=== PATIENT | female | born 1945 | race Caucasian/White ===

== ENCOUNTER 2016-12-10 23:43 | Observation (INO) ==
--- NOTE | 2016-12-10 23:51 | Emergency Department Note ---
Disposition Clinical Impression: Lower extremity edema Chest pain Qualifiers: Chest pain type: unspecified Qualified Code(s): R07.9 - Chest pain, unspecified Disposition: Admitted As Inpatient Condition: Good Referrals: Idania Sun DO [Primary Care Provider] - Forms: ED Satisfaction Letter Time of Disposition: 03:23 Chest Pain HPI - General Chief Complaint: ED Chest Pain Stated Complaint: chest pain Time Seen by Provider: 12/10/16 23:50 Source: patient, EMS Mode of arrival: EMS Limitations: no limitations Vital Signs Reviewed: Yes Nursing Notes Reviewed: Yes - History of Present Illness HPI Narrative: Patient is a 71-year-old female with past medical history of stent placement 3 , COPD, smoking history. She presents today due to chest pain. She states that she had chest pain just prior to arrival while sitting at her kitchen table she states that it was left-sided, radiated to her back and left jaw, associated shortness of breath. No associated sweating, nausea, vomiting. She took 3 nitroglycerin tablets at home and states that the pain completely relieved after this. Denies any other current symptoms and rates her current pain a 0 out of 10. Denies any fevers, nausea, vomiting, abdominal pain, changes in bowel or bladder habits. - Related Data Home Medications Medication Instructions Recorded Confirmed Atorvastatin [Lipitor] 40 mg PO HS 11/12/16 11/13/16 Celecoxib [Celebrex] 200 mg PO DAILY 11/12/16 11/13/16 Clopidogrel [Plavix] 75 mg PO DAILY 11/12/16 11/13/16 HYDROcodone/Acet 5/325 mg [[place] 1 tab PO Q6HR PRN 11/12/16 11/13/16 5-325 mg] Isosorbide MONOnitrate (24 HR) 30 mg PO DAILY 11/12/16 11/13/16 [Imdur] Levothyroxine [Synthroid] 75 mcg PO DAILY 11/12/16 11/13/16 Metoprolol [Lopressor] 25 mg PO BID 11/12/16 11/13/16 Omeprazole [PriLOSEC] 40 mg PO BID 11/12/16 11/13/16 Potassium Chloride [Klor-Con 16 meq PO BID 11/12/16 11/13/16 Sprinkle] Aspirin 81 mg PO DAILY 11/13/16 11/13/16 buPROPion HCl [Zyban] 150 mg BID 11/13/16 11/13/16 Previous Rx's Medication Instructions Recorded Gabapentin [Neurontin] 300 mg PO TID capsule 11/15/16 GuaiFENesin ER [Mucinex] 600 mg PO BID tbbp.12hr 11/15/16 Levofloxacin [Levaquin] 750 mg PO DAILY #3 tablet 11/15/16 Nicotine Patch [Nicoderm] 14 mg TD DAILY patch.td24 11/15/16 predniSONE [Prednisone] 10 mg PO DAILY #10 tab.ds.pk 11/15/16 Allergies Allergy/AdvReac Type Severity Reaction Status Date / Time acetaminophen [From Percocet] Allergy Nausea Verified 12/10/16 23:48 Oxycodone [From Percocet] Allergy Nausea Verified 12/10/16 23:48 rofecoxib [From Vioxx] Allergy Swelling Verified 12/10/16 23:48 of Lip/Tongue/Throat DYE(mylogram) Allergy Vomiting Uncoded 12/10/16 23:48 All systems ED: reviewed and negative except as stated. 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 history - Social History Smoking Status: Current every day smoker Alcohol use: Reports: none Drug use: Reports: none Physical Exam - General Limitations: no limitations General appearance: alert, in no apparent distress - Head Head exam: atraumatic, normocephalic, normal inspection - Eye Eye exam: Present: normal appearance, PERRL, EOMI - ENT ENT exam: normal exam, normal oropharynx, mucous membranes moist - Neck Neck exam: Present: normal inspection, full ROM, trachea midline - Chest Chest inspection: Present: normal inspection, symmetric chest wall rise - Respiratory Respiratory exam: Present: wheezes (mild wheezes in bilateral LL) - Cardiovascular Cardiovascular exam: Present: regular rate, normal rhythm, normal heart sounds - Abdominal Exam Abdominal exam: Present: soft, Non-Tender. Absent: tenderness, distention, guarding, rebound, rigidity - Extremities Exam Extremities exam: Present: normal inspection, full ROM, pedal edema (swelling of LLE and pain with palpation of left calf and foot) - Neurological Exam Neurological exam: Present: alert, oriented X3 - Psychiatric Psychiatric exam: Present: normal affect, normal mood - Skin Skin exam: Present: warm, dry, intact, normal color Course Course Narrative: Patient mildly hypertensive with systolic in the 130s on presentation. Otherwise, the rest of the vitals within normal limits. Patient is in no acute distress. Mild wheezes in lower lobes bilaterally. Swelling of LLE and pain with palpation of left calf and foot. EKG was obtained which showed sinus rhythm with no acute ST changes. We will obtain chest x-ray, troponin, basic blood work, a d-dimer to assess for clot. We will give patient aspirin 325 mg as she did not take appropriate dosing prior to arrival. Currently no chest pain. 03:20 d-dimer was ordered due to left LE swelling. This came back positive. Lower extremity Dopplers were obtained and were negative for DVT. CTA of the chest was negative for any signs of PE. There was signs of emphysematous changes. Patient continues to have no current chest pain. We will admit the patient for chest pain rule out with risk factors and pain going away with nitroglycerin. Chest X-Ray 12/10/16 23:51 IMPRESSION: 1. No acute cardiopulmonary abnormality. 2. Stable findings of emphysema and chronic obstructive physiology. D/ / Arias Mcrae MD / Arias Mcrae MD Interpreting Provider: Arias Mcrae MD Chest CTA 12/11/16 01:00 IMPRESSION: No evidence of pulmonary embolism or acute pulmonary abnormality. Moderate emphysematous changes in the lungs. D/ / Chantal Pena MD / Chantal Pena MD Interpreting Provider: Chantal Pena MD Vital Signs Temperature 97.9 F 12/10/16 23:48 Pulse Rate 75 12/10/16 23:48 Respiratory Rate 16 12/10/16 23:48 Blood Pressure 130/71 12/10/16 23:48 O2 Sat by Pulse Oximetry 98 12/10/16 23:48 Temperature 97.9 F 12/10/16 23:48 Pulse Rate 75 12/10/16 23:48 Respiratory Rate 16 12/10/16 23:48 Blood Pressure 130/71 12/10/16 23:48 O2 Sat by Pulse Oximetry 98 12/10/16 23:48 Oxygen Delivery Oxygen Delivery Room Air Chest Pain - MDM Narrative Medical decision making narrative: d-dimer was ordered due to left LE swelling. This came back positive. Lower extremity Dopplers were obtained and were negative for DVT. CTA of the chest was negative for any signs of PE. There was signs of emphysematous changes. Patient continues to have no current chest pain. We will admit the patient for chest pain rule out with risk factors and pain going away with nitroglycerin. - Medical Records Medical records reviewed: Yes I reviewed the patient's medical records. - Lab Data Lab results reviewed: Yes I reviewed the patient's lab results. Result diagrams: 12/11/16 00:13 12/11/16 00:13 Lab Results 12/11/16 12/11/16 12/11/16 Range/Units 00:13 00:13 00:13 WBC 5.6 (4.3-11.1) K/mcL RBC 3.66 L (3.82-4.97) M/mcL Hgb 12.0 (11.5-15.4) g/dL Hct 36.2 (35.3-44.9) % MCV 98.9 (83.0-100.0) fL MCH 32.8 (28.0-33.3) pg MCHC 33.1 (31.6-35.5) g/dL RDW 13.2 (11.5-14.5) % Plt Count 276 (140-400) K/mcL MPV 9.2 L (9.4-12.4) fL Immature Gran % 0.7 (0-4) % Seg Neutrophils % 43.9 % Lymphocytes % 36.2 % Monocytes % 12.8 % Eosinophils % 5.7 % Basophils % 0.7 % Neutrophils # 2.5 (1.6-8.9) K/mcL Lymphocytes # 2.0 (0.6-4.6) K/mcL Monocytes # 0.7 (0.0-1.3) K/mcL Eosinophils # 0.3 (0.0-0.6) K/mcL Basophils # 0.0 (0.0-0.2) K/mcL PT 10.0 (9.4-12.1) Seconds INR 0.9 APTT 29.1 (26.0-36.0) Seconds D-Dimer (0-500) ng/mLFEU Sodium 138 (136-145) mEq/L Potassium 4.8 H (3.5-4.5) mEq/L Chloride 106 (98-109) mEq/L Carbon Dioxide 26 (19-29) mEq/L BUN 27 H (7-20) mg/dL Creatinine 1.23 H (0.57-1.11) mg/dL Est GFR ( Amer) 52 L (> 60) Est GFR (Non-Af Amer) 43 L (> 60) BUN/Creatinine Ratio 22 (6-26) Glucose 81 (70-99) mg/dL Calculated Osmolality 290 (280-300) Calcium 9.4 (8.6-10.8) mg/dL Troponin I (0-0.03) ng/mL 12/11/16 12/11/16 Range/Units 00:13 00:13 WBC (4.3-11.1) K/mcL RBC (3.82-4.97) M/mcL Hgb (11.5-15.4) g/dL Hct (35.3-44.9) % MCV (83.0-100.0) fL MCH (28.0-33.3) pg MCHC (31.6-35.5) g/dL RDW (11.5-14.5) % Plt Count (140-400) K/mcL MPV (9.4-12.4) fL Immature Gran % (0-4) % Seg Neutrophils % % Lymphocytes % % Monocytes % % Eosinophils % % Basophils % % Neutrophils # (1.6-8.9) K/mcL Lymphocytes # (0.6-4.6) K/mcL Monocytes # (0.0-1.3) K/mcL Eosinophils # (0.0-0.6) K/mcL Basophils # (0.0-0.2) K/mcL PT (9.4-12.1) Seconds INR APTT (26.0-36.0) Seconds D-Dimer 2211 H (0-500) ng/mLFEU Sodium (136-145) mEq/L Potassium (3.5-4.5) mEq/L Chloride (98-109) mEq/L Carbon Dioxide (19-29) mEq/L BUN (7-20) mg/dL Creatinine (0.57-1.11) mg/dL Est GFR ( Amer) (> 60) Est GFR (Non-Af Amer) (> 60) BUN/Creatinine Ratio (6-26) Glucose (70-99) mg/dL Calculated Osmolality (280-300) Calcium (8.6-10.8) mg/dL Troponin I 0.00 (0-0.03) ng/mL - Radiology Data Radiology results reviewed: Yes I reviewed the patient's radiology results. Chest X-Ray 12/10/16 23:51 IMPRESSION: 1. No acute cardiopulmonary abnormality. 2. Stable findings of emphysema and chronic obstructive physiology. D/ / Arias Mcrae MD / Arias Mcrae MD Interpreting Provider: Arias Mcrae MD Chest CTA 12/11/16 01:00 IMPRESSION: No evidence of pulmonary embolism or acute pulmonary abnormality. Moderate emphysematous changes in the lungs. D/ / Chantal Pena MD / Chantal Pena MD Interpreting Provider: Chantal Pena MD - EKG Data EKG attestation: Yes I reviewed and interpreted this EKG. EKG results narrative: 12/10/2016 at 23:49. Normal sinus rhythm. Rate 77. TN 201. QRS 86. QTC 411. Normal axis. No acute ST elevation or depression. No changes from previous EKG on 11/12/2016. S.B.A.R. - S.B.A.R. Situation: Demographics, MOA Background: Presenting Complaint, Relevant PMH, Meds, & Allergies Assessment: Vital Signs, Course and respsone to treatment, Exam Concerns, Patient/Family Expectation, Pertinant Lab Results Recommendation: Barrier(s) to disposition, Recommendation based on pending studies, treatments, or consults Chandu Report Given to: Dr. Escobar Schofield Repor Time: 03:23
[2016-12-10] MEDS ORDERED: Aspirin 325 MG TABLET PO ONE (23:53)
--- NOTE | 2016-12-11 00:05 | Emergency Department Note ---
START Narrative - START START: I examined this patient and my medical decision-making was reviewed with the Resident Physician. I agree with the documented findings, disposition and treatment plan as described except to the extent set forth below. 71 year old female with HX of cardiac stents presnts with midsternal chest pain that was orginally desribed as 10/10 but after taking nitro it was now 2/10. We will do chest rule out ACS workup in addition to a PE/DVt rue out with D-dimer due to some increased swelling in her legs . We will admit to medicine if PE/ Dvt workup is negative fr chest pain rule out ACS.
[2016-12-11 00:20] LABS: Basophils % 0.7 %; Eosinophils # 0.3 K/mcL (0.0-0.6); Eosinophils % 5.7 %; Hematocrit 36.2 % (35.3-44.9); Immature Granulocytes % 0.7 % (0-4); Lymphocytes % 36.2 %; Mean Corpuscular HGB Conc 33.1 g/dL (31.6-35.5); Mean Corpuscular Hemoglobin 32.8 pg (28.0-33.3); Mean Corpuscular Volume 98.9 fL (83.0-100.0); Mean Platelet Volume 9.2 fL (9.4-12.4); Monocytes # 0.7 K/mcL (0.0-1.3); Monocytes % 12.8 %; Neutrophils # 2.5 K/mcL (1.6-8.9); Platelet Count 276 K/mcL (140-400); Red Blood Count 3.66 M/mcL (3.82-4.97); Red Cell Distribution Width 13.2 % (11.5-14.5); Segmented Neutrophils % 43.9 %
[2016-12-11 00:27] LABS: INR 0.9
[2016-12-11 00:29] LABS: Activated Partial Thrombo Time 29.1 Seconds (26.0-36.0)
[2016-12-11 00:32] LABS: Calcium 9.4 mg/dL (8.6-10.8); Potassium 4.8 mEq/L (3.5-4.5)
[2016-12-11] MEDS ORDERED: *HR* Promethazine 25 MG/ML VIAL IVP ONE (01:21)
[2016-12-11] MEDS ORDERED: *HR* HYDROcodone/Acet 5/325 mg TABLET PO PRN (07:50)
[2016-12-11] MEDS ORDERED: Naloxone 0.4 MG/ML INJ IVP PRN (08:11)
[2016-12-11] MEDS ORDERED: Acetaminophen 325 MG TABLET PO PRN (08:11)
[2016-12-11] MEDS ORDERED: *HR* Promethazine 25 MG/ML VIAL IVP PRN (08:11)
[2016-12-11] MEDS ORDERED: *HR* Morphine 2 MG/ML SYRINGE IVP PRN (08:11)
[2016-12-11] MEDS ORDERED: 0.9 % Sodium Chloride 1,000 ML IVC SCH (08:15)
[2016-12-11] MEDS ORDERED: Ipratropium/Albuterol Neb 3 ML IH PRN (08:20)
--- NOTE | 2016-12-11 08:21 | Internal Med History&Physical ---
Date of Encounter: 12/11/16 Time of Encounter: 08:14 Assessment and Plan (1) Chest pain Current visit: Yes Status: Acute Schedule stress test Telemetry, troponins, continue aspirin, Plavix, isosorbide Schedule stress test and hold metoprolol for test, continue statin Order lipid panel Omeprazole for GI prophylaxis and Lovenox for DVT prophylaxis. The patient will be admitted for observation. Full code. Time spent on this admission 40 min Qualifiers: Chest pain type: unspecified Qualified Code(s): R07.9 - Chest pain, unspecified (2) CAD (coronary artery disease) Current visit: No Status: Chronic Qualifiers: Coronary Disease-Associated Artery/Lesion type: [place] artery [place] vs. transplanted heart: [place] heart Associated angina: angina presence unspecified Qualified Code(s): I25.10 - Atherosclerotic heart disease of [place] coronary artery without angina pectoris (3) Hypertension Current visit: No Status: Chronic Stable Qualifiers: Hypertension type: essential hypertension Qualified Code(s): I10 - Essential (primary) hypertension (4) Hypothyroid Current visit: No Status: Chronic Continue Synthroid Qualifiers: Hypothyroidism type: unspecified Qualified Code(s): E03.9 - Hypothyroidism , unspecified (5) Tobacco use Current visit: No Status: Acute Smoking cessation counseling. Nicotine patch (6) Elevated d-dimer Current visit: Yes Status: Acute CT scan did not show evidence of pulmonary emboli, venous duplex did not show evidence of DVT (7) COPD (chronic obstructive pulmonary disease) Current visit: Yes Status: Acute No exacerbation, continued on nebs as needed Qualifiers: COPD type: emphysema Emphysema type: unspecified Qualified Code(s): J43.9 - Emphysema, unspecified Internal Medicine - H&P: HPI Chief complaint: Chest pain Admitted From: Emergency Dept History of present illness: Ms. Cat is a 71 year old female with a past medical history of CAD status post stents, COPD not oxygen dependent, tobacco use, hypertension and hyperlipidemia who came to the emergency room complaining of chest pain that started last night around 10 PM and lasted for about 30 minutes. The patient is very somnolent and is very poor historian but she was able to answer questions mentioning that the chest pain was a mainly midsternal, 10 out of 10 in intensity radiating to her back and jaw, pressure-like. The d-dimer was performed and was [address] scan of the chest was on showing no pulmonary emboli and showing just moderate emphysematous changes. Her creatinine is 1.23 at baseline. The duplex of both lower extremities was performed and it was negative for DVT. EKG shows minimal ST elevations on the lateral leads less than 2 mm. The patient has not been complaining of any chest pain since last night, denies any other symptom at the moment there is very tired and somnolent. Received aspirin at emergency room Past Med Surg Social Fam HX - Past Medical History Medical history: arthritis, COPD (Not oxygen dependent), coronary artery disease (Status post stents), GERD, hyperlipidemia, hypertension, myocardial infarction, thyroid disease (Hypothyroidism), other (Tobacco use, depression, osteoarthritis, GERD, UTIs, gastric ulcers) Psychiatric history: no psych history - Past Surgical History Surgical History: other (Neck surgeries, back surgeries) - Social History Smoking Status: Current every day smoker Packs per day: 1 Smokeless Tobacco Status: No Alcohol use: none Drug use: none - Family History Father Living Status: Mother Living Status: Still Living Hx Family Cardiac Disorders: Yes (Heart disease hypertension) Brother Adopted: No Family Member Ethnicity: Non- Living Status: Hx Family Cardiac Disorders: Yes Hx Family Respiratory Disorders: Yes Hx Family Cancer: Yes (Mother malignant melanoma) Hx Family GI Disorders: No Hx Family Endocrine Disorder: Yes (Thyroid disorder) Hx Family Neuromuscular Disorders: No Hx Family Neurologic Disorders: No Hx Family HEENT Disorders: No Hx Family Autoimmune Disorders: No - Additional Family History Additional family history: Father committed suicide, mother with hypertension Internal Medicine - H&P: Meds Atorvastatin [Lipitor] 40 mg PO HS 11/12/16 [History] Celecoxib [Celebrex] 200 mg PO DAILY 11/12/16 [History] Clopidogrel [Plavix] 75 mg PO DAILY 11/12/16 [History] HYDROcodone/Acet 5/325 mg [[place] 5-325 mg] 1 tab PO Q6HR PRN 11/12/16 [History] Isosorbide MONOnitrate (24 HR) [Imdur] 30 mg PO DAILY 11/12/16 [History] Levothyroxine [Synthroid] 75 mcg PO DAILY 11/12/16 [History] Metoprolol [Lopressor] 25 mg PO BID 11/12/16 [History] Omeprazole [PriLOSEC] 40 mg PO BID 11/12/16 [History] Potassium Chloride [Klor-Con Sprinkle] 16 meq PO BID 11/12/16 [History] Aspirin 81 mg PO DAILY 11/13/16 [History] buPROPion HCl [Zyban] 150 mg BID 11/13/16 [History] Gabapentin [Neurontin] 300 mg PO TID capsule 11/15/16 [Rx] GuaiFENesin ER [Mucinex] 600 mg PO BID tbbp.12hr 11/15/16 [Rx] Levofloxacin [Levaquin] 750 mg PO DAILY #3 tablet 11/15/16 [Rx] Nicotine Patch [Nicoderm] 14 mg TD DAILY patch.td24 11/15/16 [Rx] predniSONE [Prednisone] 10 mg PO DAILY #10 tab.ds.pk 11/15/16 [Rx] 3 Allergy/AdvReac Type Severity Reaction Status Date / Time acetaminophen [From Percocet] Allergy Nausea Verified 12/10/16 23:48 Oxycodone [From Percocet] Allergy Nausea Verified 12/10/16 23:48 rofecoxib [From Vioxx] Allergy Swelling Verified 12/10/16 23:48 of Lip/Tongue/Throat DYE(mylogram) Allergy Vomiting Uncoded 12/10/16 23:48 All Systems PM: A 10-system review of systems was performed and is negative for pertinent findings except as documented above in the HPI. Review of systems: Denies any shortness of breath, no abdominal pain, no dysuria. Other systems out all the 10 reviewed were negative - Constitutional Vitals: Temp Pulse Resp BP Pulse Ox 97.8 F 80 18 105/50 97 12/11/16 08:05 12/11/16 08:05 12/11/16 08:05 12/11/16 08:05 12/11/16 08:05 General appearance: Present: A&O X 3 (Forgetful but oriented, very somnolent) - Head Head exam: Present: atraumatic, normocephalic - Eye Eye exam: Present: PERRL, conjuntiva pink, sclera anicteric Pupils: Present: PERRL - Neck Neck exam general surgery: Present: supple, trachea midline. Absent: lymphadenopathy - Respiratory Respiratory exam: Present: decreased breath sounds, CTAB. Absent: accessory muscle use, rales, rhonchi, wheezes - Cardiovascular Cardiovascular exam: Present: RRR, +S1, +S2. Absent: diastolic murmur, gallop, rubs, systolic murmur - GI/Abdominal GI/Abdominal exam: Present: normal bowel sounds, soft, no peritoneal signs. Absent: distended, tenderness - Extremities Exam Extremities exam: Present: warm, radial pulses palpable and symmetrical. Absent : calf tenderness, cyanotic, pedal edema - Neurological Exam Neurological exam: Present: CN II-XII intact, oriented X3, no focal deficits. Absent: pronater drift, facial droop, speech deficit - Skin Skin exam: Present: dry, intact Internal Med - H&P Results - Labs CBC & Chem 7: 12/11/16 00:13 12/11/16 00:13
[2016-12-11] MEDS ORDERED: *HR* Enoxaparin 40 MG/0.4 ML SYRINGE SQ SCH (08:30)
[2016-12-11] MEDS ORDERED: Aspirin 81 MG TAB.CHEW PO SCH (09:00)
[2016-12-11] MEDS ORDERED: Nicotine 14 MG PATCH.TD24 TD SCH (09:00)
[2016-12-11] MEDS ORDERED: Nicotine 21 MG PATCH.TD24 TD SCH (09:00)
[2016-12-11] MEDS ORDERED: BuPROPion SR (12 HR) 150 MG TABLET PO SCH (09:00)
[2016-12-11] MEDS ORDERED: Isosorbide MONOnitrate (24 HR) 30 MG TAB.ER.24H PO SCH (09:00)
[2016-12-11 09:38] LABS: Chol/HDL Ratio 2.2 (0-4.9)
[2016-12-11] MEDS ORDERED: Regadenoson 0.4 MG/5 ML SYRINGE IVP ONE (11:19)
[2016-12-11] MEDS: Gabapentin 300 MG CAPSULE PO SCH ×2 (13:37→13:50)
[2016-12-11 13:48] VITALS: BP 110/66
--- NOTE | 2016-12-11 14:46 | Discharge Summary ---
Date of Encounter: 12/11/16 Time of Encounter: 14:42 - Discharge Diagnosis (1) Chest pain Priority: Primary Status: Acute Qualifiers: Chest pain type: unspecified Qualified Code(s): R07.9 - Chest pain, unspecified (2) CAD (coronary artery disease) Priority: Secondary Status: Chronic Qualifiers: Coronary Disease-Associated Artery/Lesion type: [place] artery [place] vs. transplanted heart: [place] heart Associated angina: angina presence unspecified Qualified Code(s): I25.10 - Atherosclerotic heart disease of [place] coronary artery without angina pectoris (3) Hypertension Priority: Secondary Status: Chronic Qualifiers: Hypertension type: essential hypertension Qualified Code(s): I10 - Essential (primary) hypertension (4) Hypothyroid Priority: Secondary Status: Chronic Qualifiers: Hypothyroidism type: unspecified Qualified Code(s): E03.9 - Hypothyroidism , unspecified (5) Tobacco use Priority: Secondary Status: Acute (6) Elevated d-dimer Priority: Secondary Status: Acute (7) COPD (chronic obstructive pulmonary disease) Priority: Secondary Status: Acute Qualifiers: COPD type: emphysema Emphysema type: unspecified Qualified Code(s): J43.9 - Emphysema, unspecified - Discharge Medications Home Medications: Atorvastatin [Lipitor] 40 mg PO HS 11/12/16 [History] Celecoxib [Celebrex] 200 mg PO DAILY 11/12/16 [History] Clopidogrel [Plavix] 75 mg PO DAILY 11/12/16 [History] HYDROcodone/Acet 5/325 mg [[place] 5-325 mg] 1 tab PO Q6HR PRN 11/12/16 [History] Isosorbide MONOnitrate (24 HR) [Imdur] 30 mg PO DAILY 11/12/16 [History] Levothyroxine [Synthroid] 75 mcg PO DAILY 11/12/16 [History] Metoprolol [Lopressor] 25 mg PO BID 11/12/16 [History] Omeprazole [PriLOSEC] 40 mg PO BID 11/12/16 [History] Potassium Chloride [Klor-Con Sprinkle] 16 meq PO BID 11/12/16 [History] Aspirin 81 mg PO DAILY 11/13/16 [History] buPROPion HCl [Zyban] 150 mg BID 11/13/16 [History] Gabapentin [Neurontin] 300 mg PO TID capsule 11/15/16 [Rx] GuaiFENesin ER [Mucinex] 600 mg PO BID tbbp.12hr 11/15/16 [Rx] Nicotine Patch [Nicoderm] 14 mg TD DAILY patch.td24 11/15/16 [Rx] predniSONE [Prednisone] 10 mg PO DAILY #10 tab.ds.pk 11/15/16 [Rx] Allergies/Adverse Reactions: 3 Allergy/AdvReac Type Severity Reaction Status Date / Time acetaminophen [From Percocet] Allergy Nausea Verified 12/10/16 23:48 Oxycodone [From Percocet] Allergy Nausea Verified 12/10/16 23:48 rofecoxib [From Vioxx] Allergy Swelling Verified 12/10/16 23:48 of Lip/Tongue/Throat DYE(mylogram) Allergy Vomiting Uncoded 12/10/16 23:48 Procedures/tests Complete & Pending: Procedures Performed prior 72 hours Category Date Time Status NM lili perf SPECT multi [NM] Routine Exams 12/11/16 07:53 Taken SP pharm nuclear stress Routine Y 12/11/16 07:52 Completed Date of admission: 12/11/16 03:23 Primary care physician: Idania Sun DO - Patient Status Disposition: Home, Self-Care Condition: Good - Discharge Instructions Follow Up With: Idania Sun DO [Primary Care Provider] - Additional Instructions: Follow-up with primary care physician in one week or as needed, continue aspirin , Plavix, metoprolol, Lipitor. Quit Smoking - Diet and Activity Activity: increase activity as tolerated Diet: low fat, low cholesterol Hospital course: Ms. Cat is a 71 year old female with a past medical history of CAD status post stents, COPD not oxygen dependent, tobacco use, hypertension and hyperlipidemia , GERD, hypothyroidism, depression, osteoarthritis, UTIs, gastric ulcers, back and neck surgeries who came to the emergency room complaining of chest pain that started last night around 10 PM and lasted for about 30 minutes. The patient is very somnolent but she was able to answer questions mentioning that the chest pain was a mainly midsternal, 10 out of 10 in intensity radiating to her back and jaw, pressure-like. The d-dimer was performed and was [address] scan of the chest was performed showing no pulmonary emboli and showing just moderate emphysematous changes. Her creatinine is 1.23 at baseline. The duplex of both lower extremities was performed and it was negative for DVT. EKG shows minimal ST elevations on the lateral leads less than 2 mm. The patient has not been complaining of any chest pain since last night, Received aspirin at emergency room Stress test showed no evidence of ischemia or infarcts. She denies any chest been at the moment and is stable to be discharged Time spent discussing smoking cessation with patient: 3 to 10 minutes - Time Spent with Patient Total time spent providing and/or coordinating discharge services: Greater than 30 minutes (40 min) - Constitutional Vitals: Temp Pulse Resp BP Pulse Ox 98.0 F 86 16 110/66 97 12/11/16 13:47 12/11/16 13:47 12/11/16 13:47 12/11/16 13:47 12/11/16 08:05 General appearance: Present: A&O X 3 (Forgetful but oriented, very somnolent) - Head Head exam: Present: atraumatic, normocephalic - Eye Eye exam: Present: PERRL, conjuntiva pink, sclera anicteric Pupils: Present: PERRL - Neck Neck exam general surgery: Present: supple, trachea midline. Absent: lymphadenopathy - Respiratory Respiratory exam: Present: decreased breath sounds, CTAB. Absent: accessory muscle use, rales, rhonchi, wheezes - Cardiovascular Cardiovascular exam: Present: RRR, +S1, +S2. Absent: diastolic murmur, gallop, rubs, systolic murmur - GI/Abdominal GI/Abdominal exam: Present: normal bowel sounds, soft, no peritoneal signs. Absent: distended, tenderness - Extremities Exam Extremities exam: Present: warm, radial pulses palpable and symmetrical. Absent : calf tenderness, cyanotic, pedal edema - Neurological Exam Neurological exam: Present: CN II-XII intact, oriented X3, no focal deficits. Absent: pronater drift, facial droop, speech deficit - Skin Skin exam: Present: dry, intact
--- NOTE | 2016-12-13 06:14 | Electrocardiograph Report ---
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
== END 2016-12-11 15:16 | disposition home or self-care (01) ==
LOC: EMEROO 23:43 → 2ANU 23:43 → SUATTDRO 12-11 03:23 → 2ANU 12-11 03:37
PROVIDERS: ADMIT Internal Medicine; ATTEND Internal Medicine

== ENCOUNTER 2017-08-27 21:20 | Inpatient (IN) ==
[2017-08-27] MEDS ORDERED: Levofloxacin 750 MG/150 ML 750 MG/150 ML BAG IVPB ONE (21:31)
--- NOTE | 2017-08-27 21:32 | Emergency Department Note ---
Disposition Clinical Impression: COPD (chronic obstructive pulmonary disease) Qualifiers: COPD type: chronic bronchitis Chronic bronchitis type: mucopurulent Qualified Code(s): J41.1 - Mucopurulent chronic bronchitis Pneumonia Qualifiers: Pneumonia type: due to unspecified organism Laterality: right Lung location: lower lobe of lung Qualified Code(s): J18.1 - Lobar pneumonia, unspecified organism Disposition: Admitted As Inpatient Referrals: Idania Sun DO [Primary Care Provider] - General Adult HPI - General Stated complaint: Fever Time Seen by Provider: 08/27/17 21:25 - Related Data Home Medications Medication Instructions Recorded Confirmed Atorvastatin [Lipitor] 40 mg PO HS 11/12/16 11/13/16 Celecoxib [Celebrex] 200 mg PO DAILY 11/12/16 11/13/16 Clopidogrel [Plavix] 75 mg PO DAILY 11/12/16 11/13/16 HYDROcodone/Acet 5/325 mg [[place] 1 tab PO Q6HR PRN 11/12/16 11/13/16 5-325 mg] Isosorbide MONOnitrate (24 HR) 30 mg PO DAILY 11/12/16 11/13/16 [Imdur] Levothyroxine [Synthroid] 75 mcg PO DAILY 11/12/16 11/13/16 Metoprolol [Lopressor] 25 mg PO BID 11/12/16 11/13/16 Omeprazole [PriLOSEC] 40 mg PO BID 11/12/16 11/13/16 Potassium Chloride [Klor-Con 16 meq PO BID 11/12/16 11/13/16 Sprinkle] Aspirin 81 mg PO DAILY 11/13/16 11/13/16 buPROPion HCl [Zyban] 150 mg BID 11/13/16 11/13/16 Previous Rx's Medication Instructions Recorded Gabapentin [Neurontin] 300 mg PO TID capsule 11/15/16 GuaiFENesin ER [Mucinex] 600 mg PO BID tbbp.12hr 11/15/16 Nicotine Patch [Nicoderm] 14 mg TD DAILY patch.td24 11/15/16 predniSONE [Prednisone] 10 mg PO DAILY #10 tab.ds.pk 11/15/16 predniSONE [PredniSONE] 40 mg PO DAILY #14 tablet 02/02/17 Allergies Allergy/AdvReac Type Severity Reaction Status Date / Time acetaminophen [From Percocet] Allergy Nausea Verified 02/02/17 16:16 Oxycodone [From Percocet] Allergy Nausea Verified 02/02/17 16:16 rofecoxib [From Vioxx] Allergy Swelling Verified 02/02/17 16:16 of Lip/Tongue/Throat DYE(mylogram) Allergy Vomiting Uncoded 12/10/16 23:48 Past Medical History - Past Medical History Medical history: Reports: arthritis, COPD, coronary artery disease, GERD, hyperlipidemia, hypertension, myocardial infarction, thyroid disease, other Surgical history: Reports: other (Neck surgeries, back surgeries) Psychiatric history: Reports: no psych history SHIPPING ASSISTANT history: Reports: no SHIPPING ASSISTANT history - Social History Smoking Status: Current every day smoker Smokeless Tobacco Status: No Alcohol use: Reports: none Drug use: Reports: none Course - Reevaluation(s) Reevaluation #1: Attestation note I examined this patient and my medical decision-making was reviewed with the emergency medicine resident. I agree with the documented findings, disposition and treatment plan as described except to the extent set forth below. Patient seen with emergency medicine resident Dr. Simeon Jackman, Please see a copy of his note for details of the H&P, ED evaluation, management and disposition. I have independently evaluated the patient and confirmed appropriate portions of the history and physical exam. Briefly: 69-year-old female by EMS for shortness of breath cough weakness. She is right lower lobe rhonchi smoker does not use alcohol oxygen was in the mid 80s on nonrebreather per EMS. Patient does have speech dyspnea and intercostal retractions she appears ill but nontoxic. Patient getting up BiPAP emergently patient will get IV fluids screening labs chest x-ray EKG IV antibiotics with admission anticipated. Admission disposition pending. Provided 35 minutes critical care service for this patient Time: 21:30
--- NOTE | 2017-08-27 21:37 | Emergency Department Note ---
Disposition Clinical Impression: Elevated troponin, Elevated lactic acid level, Hypoxia COPD (chronic obstructive pulmonary disease) Qualifiers: COPD type: chronic bronchitis Chronic bronchitis type: mucopurulent Qualified Code(s): J41.1 - Mucopurulent chronic bronchitis Pneumonia Qualifiers: Pneumonia type: due to unspecified organism Laterality: right Lung location: lower lobe of lung Qualified Code(s): J18.1 - Lobar pneumonia, unspecified organism Disposition: Admitted As Inpatient Condition: Fair Referrals: Idania Sun DO [Primary Care Provider] - Forms: ED Satisfaction Letter Time of Disposition: 23:53 SOB HPI - General Chief Complaint: ED Shortness of Breath/Dyspnea Stated Complaint: Fever Time Seen by Provider: 08/27/17 21:25 Source: patient, EMS Mode of arrival: EMS Limitations: no limitations Nursing Notes Reviewed: Yes Vital Signs Reviewed: Yes - History of Present Illness Patient is a 71-year-old female with past medical history of COPD. Does not wear oxygen at home. No recent steroids or antibiotics. She presents today via EMS due to shortness of breath, cough. She states that over the past 2 days , she has had increased shortness of breath, cough, brown sputum production. She has also had subjective fever and chills. EMS states that the patient was satting in the upper 80s on 15 L nonrebreather mask. She also had an axillary temperature of 101. The patient herself admits to productive cough, dyspnea from her baseline. Denies any other chest pain, abdominal pain, nausea, vomiting, diarrhea, abdominal pain. She denies ever being admitted to the hospital for COPD exacerbation or pneumonia. - Related Data Home Medications Medication Instructions Recorded Confirmed Atorvastatin [Lipitor] 40 mg PO HS 11/12/16 11/13/16 Celecoxib [Celebrex] 200 mg PO DAILY 11/12/16 11/13/16 Clopidogrel [Plavix] 75 mg PO DAILY 11/12/16 11/13/16 HYDROcodone/Acet 5/325 mg [[place] 1 tab PO Q6HR PRN 11/12/16 11/13/16 5-325 mg] Isosorbide MONOnitrate (24 HR) 30 mg PO DAILY 11/12/16 11/13/16 [Imdur] Levothyroxine [Synthroid] 75 mcg PO DAILY 11/12/16 11/13/16 Metoprolol [Lopressor] 25 mg PO BID 11/12/16 11/13/16 Omeprazole [PriLOSEC] 40 mg PO BID 11/12/16 11/13/16 Potassium Chloride [Klor-Con 16 meq PO BID 11/12/16 11/13/16 Sprinkle] Aspirin 81 mg PO DAILY 11/13/16 11/13/16 buPROPion HCl [Zyban] 150 mg BID 11/13/16 11/13/16 Previous Rx's Medication Instructions Recorded Gabapentin [Neurontin] 300 mg PO TID capsule 11/15/16 GuaiFENesin ER [Mucinex] 600 mg PO BID tbbp.12hr 11/15/16 Nicotine Patch [Nicoderm] 14 mg TD DAILY patch.td24 11/15/16 predniSONE [Prednisone] 10 mg PO DAILY #10 tab.ds.pk 11/15/16 predniSONE [PredniSONE] 40 mg PO DAILY #14 tablet 02/02/17 Allergies Allergy/AdvReac Type Severity Reaction Status Date / Time acetaminophen [From Percocet] Allergy Nausea Verified 02/02/17 16:16 Oxycodone [From Percocet] Allergy Nausea Verified 02/02/17 16:16 rofecoxib [From Vioxx] Allergy Swelling Verified 02/02/17 16:16 of Lip/Tongue/Throat DYE(mylogram) Allergy Vomiting Uncoded 12/10/16 23:48 All systems ED: reviewed and negative except as stated. Constitutional: Reports: fever, chills Cardiovascular: Denies: chest pain Respiratory: Reports: cough, dyspnea, wheezes, sputum production Gastrointestinal: Denies: abdominal pain, nausea, vomiting, diarrhea Genitourinary: Denies: urgency, dysuria Integumentary: Denies: rash Neurological: Denies: headache, weakness, numbness, paresthesias Psychiatric: Denies: anxiety, depression, suicidal thoughts Endocrine: Reports: fatigue Past Medical History - Past Medical History Attestation: Yes The following information was validated with the patient. Source: patient Medical history: Reports: arthritis, COPD, coronary artery disease, GERD, hyperlipidemia, hypertension, myocardial infarction, thyroid disease, other Surgical history: Reports: other (Neck surgeries, back surgeries) Psychiatric history: Reports: no psych history HAND SLITTER history: Reports: no HAND SLITTER history - Social History Smoking Status: Current every day smoker Smokeless Tobacco Status: No Alcohol use: Reports: none Drug use: Reports: none Physical Exam - General Limitations: no limitations General appearance: alert, other (moderate resp distress) - Head Head exam: atraumatic, normocephalic, normal inspection - Eye Eye exam: Present: normal appearance, PERRL, EOMI - ENT ENT exam: normal exam, normal oropharynx, mucous membranes moist - Neck Neck exam: Present: normal inspection, full ROM, trachea midline - Chest Chest inspection: Present: normal inspection, symmetric chest wall rise - Respiratory Respiratory exam: Present: respiratory distress (moderate resp distress), other (rhonchi in RLL) - Cardiovascular Cardiovascular exam: Present: normal rhythm, tachycardia, normal heart sounds - Abdominal Exam Abdominal exam: Present: soft, Non-Tender. Absent: tenderness, distention, guarding, rebound, rigidity - Extremities Exam Extremities exam: Present: normal inspection, full ROM. Absent: tenderness, pedal edema - Neurological Exam Neurological exam: Present: alert, oriented X3 - Psychiatric Psychiatric exam: Present: normal affect, normal mood - Skin Skin exam: Present: warm, dry, intact, normal color Course Course Narrative: Patient was satting 70% on presentation without any oxygen on. Immediately placed her on nonrebreather and her oxygen saturation went up to upper 80s. BiPAP and DuoNeb 3 have been ordered along with Solu-Medrol. Patient has rhonchi in the right lower lobe. With fever, with active cough, rhonchi, there is concern for pneumonia. We will start the patient on Levaquin IV for likely pneumonia. Patient will need to be admitted for further care. Chest x-ray, basic blood work ordered along with sepsis order set. 23:46 chest x-ray shows bilateral pneumonia. Labs show elevated troponin. Currently no chest pain but patient, will give rectal aspirin. No acute EKG changes. Doing clinically better on BiPAP. I discussed patient with Dr. May , due to high oxygen requirement, tachypnea, there is concern that patient needs close monitoring. He has requested the patient be admitted to ICU at this time. Chest X-Ray 08/27/17 21:28 IMPRESSION: Bilateral pneumonia. D/ / Reese Canchola MD / Reese Canchola MD Interpreting Provider: Reese Canchola MD Vital Signs Temperature 99.7 F H 08/27/17 21:34 Pulse Rate 145 08/27/17 21:34 Respiratory Rate 40 08/27/17 21:34 Blood Pressure 120/45 08/27/17 21:34 O2 Sat by Pulse Oximetry 77 08/27/17 21:34 Temperature 99.7 F H 08/27/17 21:34 Pulse Rate 134 08/27/17 23:16 Respiratory Rate 44 08/27/17 23:16 Blood Pressure 89/59 08/27/17 23:16 O2 Sat by Pulse Oximetry 94 08/27/17 23:16 Oxygen Delivery Oxygen Delivery Bipap Shortness of Breath/Dyspnea - MDM Narrative Medical decision making narrative: Patient was satting 70% on presentation without any oxygen on. Immediately placed her on nonrebreather and her oxygen saturation went up to upper 80s. BiPAP and DuoNeb 3 have been ordered along with Solu-Medrol. Patient has rhonchi in the right lower lobe. With fever, with active cough, rhonchi, there is concern for pneumonia. We will start the patient on Levaquin IV for likely pneumonia. Patient will need to be admitted for further care. Chest x-ray, basic blood work ordered along with sepsis order set. 23:46 chest x-ray shows bilateral pneumonia. Labs show elevated troponin. Currently no chest pain but patient, will give rectal aspirin. No acute EKG changes. Doing clinically better on BiPAP. I discussed patient with Dr. May , due to high oxygen requirement, tachypnea, there is concern that patient needs close monitoring. He has requested the patient be admitted to ICU at this time. - Medical Records Medical records reviewed: Yes I reviewed the patient's medical records. - Lab Data Lab results reviewed: Yes I reviewed the patient's lab results. Result diagrams: 08/27/17 21:42 08/27/17 21:42 Lab Results 08/27/17 08/27/17 08/27/17 Range/Units 21:42 21:42 21:42 WBC 2.9 L (4.3-11.1) K/mcL RBC 5.26 H (3.82-4.97) M/mcL Hgb 16.5 H (11.5-15.4) g/dL Hct 47.5 H (35.3-44.9) % MCV 90.3 (83.0-100.0) fL MCH 31.4 (28.0-33.3) pg MCHC 34.7 (31.6-35.5) g/dL RDW 13.2 (11.5-14.5) % Plt Count 157 (140-400) K/mcL MPV 10.5 (9.4-12.4) fL Immature Gran % 0.3 (0-4) % Seg Neutrophils % 82.2 % Lymphocytes % 8.6 % Monocytes % 8.6 % Eosinophils % 0.0 % Basophils % 0.3 % Neutrophils # 2.4 (1.6-8.9) K/mcL Lymphocytes # 0.3 L (0.6-4.6) K/mcL Monocytes # 0.3 (0.0-1.3) K/mcL Eosinophils # 0.0 (0.0-0.6) K/mcL Basophils # 0.0 (0.0-0.2) K/mcL Reactive Lymphocytes Present A (Not Present) Sodium 132 L (136-145) mEq/L Potassium 4.0 (3.5-5.1) mEq/L Chloride 101 (98-107) mEq/L Carbon Dioxide 22 L (23-29) mEq/L BUN 35 H (8-23) mg/dL Creatinine 1.00 (0.60-1.20) mg/dL Est GFR ( Amer) > 60 (> 60) Est GFR (Non-Af Amer) 54 L (> 60) BUN/Creatinine Ratio 35 H (6-26) Glucose 72 (70-105) mg/dL Calculated Osmolality 281 (280-300) Lactic Acid 2.7 H (0.5-2.2) mmol/L Calcium 9.1 (8.6-10.3) mg/dL Troponin I 0.19 H* (< 0.04) ng/mL - Radiology Data Radiology results reviewed: Yes I reviewed the patient's radiology results. Chest X-Ray 08/27/17 21:28 IMPRESSION: Bilateral pneumonia. D/ / Reese Canchola MD / Reese Canchola MD Interpreting Provider: Reese Canchola MD - EKG Data EKG attestation: Yes I reviewed and interpreted this EKG. EKG results narrative: 08/27/2017 21:43. Sinus tachycardia. Rate 146. ND 143. QRS 86. QTC 410. T- wave inversion in lead V1, V2. No acute ST elevation or depression. Chandu - Chandu Situation: Demographics, MOA Background: Presenting Complaint, Relevant PMH, Meds, & Allergies Assessment: Vital Signs, Course and respsone to treatment, Exam Concerns, Patient/Family Expectation, Pertinant Lab Results, Outstanding Labs Recommendation: Barrier(s) to disposition, Recommendation based on pending studies, treatments, or consults Chandu Report Given to: Dr. Lalo Schofield Repor Time: 23:53
[2017-08-27] MEDS ORDERED: methylPREDNISolone 125 MG/2 ML VIAL IVP ONE (21:40)
[2017-08-27] MEDS ORDERED: Ipratropium/Albuterol Neb 3 ML IH ONE (21:40)
[2017-08-27 22:04] LABS: Basophils % 0.3 %; Hematocrit 47.5 % (35.3-44.9); Hemoglobin 16.5 g/dL (11.5-15.4); Immature Granulocytes % 0.3 % (0-4); Lymphocytes # 0.3 K/mcL (0.6-4.6); Lymphocytes % 8.6 %; Mean Corpuscular HGB Conc 34.7 g/dL (31.6-35.5); Mean Corpuscular Hemoglobin 31.4 pg (28.0-33.3); Mean Corpuscular Volume 90.3 fL (83.0-100.0); Mean Platelet Volume 10.5 fL (9.4-12.4); Monocytes # 0.3 K/mcL (0.0-1.3); Monocytes % 8.6 %; Neutrophils # 2.4 K/mcL (1.6-8.9); Platelet Count 157 K/mcL (140-400); Red Blood Count 5.26 M/mcL (3.82-4.97); Red Cell Distribution Width 13.2 % (11.5-14.5); Segmented Neutrophils % 82.2 %
[2017-08-27] MEDS: 0.9 % Sodium Chloride 1,000 ML IVC SCH ×2 (22:07→23:11)
[2017-08-27 22:21] LABS: Reactive Lymphocytes Present (Not Present)
[2017-08-27 22:25] LABS: BUN/Creatinine Ratio 35 (6-26); Blood Urea Nitrogen 35 mg/dL (8-23); Calcium 9.1 mg/dL (8.6-10.3); Carbon Dioxide 22 mEq/L (23-29); Chloride 101 mEq/L (98-107); Glucose 72 mg/dL (70-105); Osmolality,Calculated 281 (280-300); Sodium 132 mEq/L (136-145); eGFR For African Americans > 60 (> 60); eGFR For Non-African Americans 54 (> 60)
[2017-08-27] MEDS ORDERED: *HR* Midazolam HCl 2 MG/2 ML VIAL IVP ONE (22:26)
[2017-08-27 22:28] LABS: Troponin I 0.19 ng/mL (< 0.04)
[2017-08-28] MEDS ORDERED: 0.9 % Sodium Chloride 1,000 ML IVC ONE ×2 (00:49→00:55)
[2017-08-28] MEDS ORDERED: Naloxone 0.4 MG/ML INJ IVP PRN (00:49)
[2017-08-28] MEDS ORDERED: Ipratropium/Albuterol Neb 3 ML IH PRN (00:56)
--- NOTE | 2017-08-28 00:59 | Internal Med History&Physical ---
Date of Encounter: 08/28/17 Time of Encounter: 00:10 Internal Medicine - H&P: HPI Chief complaint: Shortness of breath Admitted From: Home Plans for Post Hospital Care: Home History of present illness: Ms. Cat is a 71 year old female present to ER for short's of breath. Past medical history is significant for CAD S/P stent, COPD. Patient did not feel good for about 1 week. She is at generalized weak. Has wheezing. Cough with dark sputum. Patient is lethargic and sleepy. Has increased short's of breath. Patient also has fever. Patient denies chest pain on nausea. Today the shortness of breath is getting worse and EMS was called. Patient was found desaturation to 70s in room air. In the emergency room, patient shows tachycardia and tachypnea with a heart rate 140s and respiratory rate 40-45. Patient was placed on BiPAP and the need 100% oxygen to maintain oxygen saturation 96%. Chest x-ray shows bilateral pneumonia. Patient has bilateral rhonchi. Patient was treated with antibiotic, steroid, and nebulizer. Patient was admitted for pneumonia, sepsis, COPD exacerbation. Past Med Surg Social Fam HX - Past Medical History Medical history: arthritis, COPD, coronary artery disease, GERD, hyperlipidemia , hypertension, myocardial infarction, thyroid disease, other Additional medical history: Chronic Back Pain Psychiatric history: no psych history - Past Surgical History Surgical History: other (Neck surgeries, back surgeries) Additional surgical history: Back Sx , CARDIAC STENT X 2 - Social History Smoking Status: Current every day smoker Smokeless Tobacco Status: No Alcohol use: none Drug use: none - Family History Father Living Status: Mother Living Status: Still Living Hx Family Cardiac Disorders: Yes (Heart disease hypertension) Brother Adopted: No Family Member Ethnicity: Non- Living Status: Hx Family Cardiac Disorders: Yes Hx Family Respiratory Disorders: Yes Hx Family Cancer: Yes (Mother malignant melanoma) Hx Family GI Disorders: No Hx Family Endocrine Disorder: Yes (Thyroid disorder) Hx Family Neuromuscular Disorders: No Hx Family Neurologic Disorders: No Hx Family HEENT Disorders: No Hx Family Autoimmune Disorders: No Internal Medicine - H&P: Meds RX: Atorvastatin [Lipitor] 40 mg PO HS 11/12/16 [History] RX: Celecoxib [Celebrex] 200 mg PO DAILY 11/12/16 [History] RX: Clopidogrel [Plavix] 75 mg PO DAILY 11/12/16 [History] RX: HYDROcodone/Acet 5/325 mg [[place] 5-325 mg] 1 tab PO Q6HR PRN 11/12/16 [ History] RX: Isosorbide MONOnitrate (24 HR) [Imdur] 30 mg PO DAILY 11/12/16 [History] RX: Levothyroxine [Synthroid] 75 mcg PO DAILY 11/12/16 [History] RX: Metoprolol [Lopressor] 25 mg PO BID 11/12/16 [History] RX: Omeprazole [PriLOSEC] 40 mg PO BID 11/12/16 [History] RX: Potassium Chloride [Klor-Con Sprinkle] 16 meq PO BID 11/12/16 [History] RX: Aspirin 81 mg PO DAILY 11/13/16 [History] RX: buPROPion HCl [Zyban] 150 mg BID 11/13/16 [History] RX: Gabapentin [Neurontin] 300 mg PO TID capsule 11/15/16 [Rx] RX: GuaiFENesin ER [Mucinex] 600 mg PO BID tbbp.12hr 11/15/16 [Rx] RX: Nicotine Patch [Nicoderm] 14 mg TD DAILY patch.td24 11/15/16 [Rx] RX: predniSONE [Prednisone] 10 mg PO DAILY #10 tab.ds.pk 11/15/16 [Rx] RX: predniSONE [PredniSONE] 40 mg PO DAILY #14 tablet 02/02/17 [Rx] 3 Allergy/AdvReac Type Severity Reaction Status Date / Time acetaminophen [From Percocet] Allergy Nausea Verified 02/02/17 16:16 Oxycodone [From Percocet] Allergy Nausea Verified 02/02/17 16:16 rofecoxib [From Vioxx] Allergy Swelling Verified 02/02/17 16:16 of Lip/Tongue/Throat DYE(mylogram) Allergy Vomiting Uncoded 12/10/16 23:48 All Systems PM: A 10-system review of systems was performed and is negative for pertinent findings except as documented above in the HPI. - Constitutional Vitals: Temp Pulse Resp BP Pulse Ox 99.7 F H 118 38 96/31 99 08/27/17 21:34 08/28/17 00:53 08/28/17 00:53 08/28/17 00:53 08/28/17 00:53 General appearance: Present: cachectic, A&O X 3, severe distress, answers questions appropriately - Head Head exam: Present: atraumatic, normocephalic - Eye Eye exam: Present: PERRL, conjuntiva pink, sclera anicteric Pupils: Present: PERRL - Neck Neck exam general surgery: Present: supple, trachea midline. Absent: lymphadenopathy - Respiratory Respiratory exam: Present: accessory muscle use, CTAB, respiratory distress, rhonchi (Diffused rhonchi bilaterally). Absent: rales, wheezes - Cardiovascular Cardiovascular exam: Present: RRR, +S1, +S2, tachycardia. Absent: diastolic murmur, gallop, rubs, systolic murmur - GI/Abdominal GI/Abdominal exam: Present: normal bowel sounds, soft, no peritoneal signs. Absent: distended, tenderness - Extremities Exam Extremities exam: Present: warm, radial pulses palpable and symmetrical. Absent : calf tenderness, cyanotic, pedal edema - Neurological Exam Neurological exam: Present: CN II-XII intact, oriented X3, no focal deficits. Absent: pronater drift, facial droop, speech deficit - Skin Skin exam: Present: dry, intact Internal Med - H&P Results - Labs CBC & Chem 7: 08/27/17 21:42 08/27/17 21:42 - EKG Data -: EKG Interpreted by Myself EKG shows normal: sinus rhythm Rate: tachycardia - Assessment and plan (1) Sepsis Current Visit: Yes Status: Acute Assessment and plan: Patient to meet sepsis criteria with tachycardia, tachypnea, leukocytopenia and fever. Infectious resource is suspected as pneumonia. - IV fluid resuscitation started the from ER, will continue - Initial lactate acid 2.7, will follow lactate acid in 6 hours - We will start broad-spectrum antibiotic Vanco and Zosyn - Follow up blood culture results Qualifiers: Sepsis type: Pneumococcus Qualified Code(s): A40.3 - Sepsis due to Streptococcus pneumoniae (2) Elevated troponin Current Visit: Yes Status: Acute Assessment and plan: Patient denies chest pain. Unremarkable EKG change. Patient has sepsis and pneumonia, patient also has severe hypoxia before arrival hospital. Most likely demand ischemia. - Continue cardiac monitoring - Check total 3 sets of troponin. - Consider cardiology consul if troponin dynamically elevated. (3) Pneumonia Current Visit: Yes Status: Acute Assessment and plan: Patient had no recent hospitalization, consider community acquired pneumonia. However patient has signs of severe sepsis, will start with broad-spectrum antibiotic. May deescalate if patient is more stabilized Qualifiers: Pneumonia type: due to Pneumococcus Laterality: right Lung location: lower lobe of lung Qualified Code(s): J13 - Pneumonia due to Streptococcus pneumoniae (4) COPD exacerbation Current Visit: No Status: Acute Assessment and plan: Patient has bilateral rhonchi. Patient has history of COPD. Will start steroid and DuoNeb as long as antibiotics. (5) DVT prophylaxis Current Visit: No Status: Acute Assessment and plan: Heparin subcutaneously (6) CAD (coronary artery disease) Current Visit: No Status: Chronic Assessment and plan: Denies chest pain. Has elevated troponin which is more likely due to demand ischemia. Continue close monitoring. Continue home medications if diet is resumed Qualifiers: Coronary Disease-Associated Artery/Lesion type: [place] artery [place] vs. transplanted heart: [place] heart Associated angina: angina presence unspecified Qualified Code(s): I25.10 - Atherosclerotic heart disease of [place] coronary artery without angina pectoris (7) Hypothyroid Current Visit: No Status: Chronic Qualifiers: Hypothyroidism type: acquired Qualified Code(s): E03.9 - Hypothyroidism, unspecified (8) Acute respiratory failure with hypoxemia Current Visit: Yes Status: Acute Assessment and plan: Patient has severe hypoxia and respiratory distress. - Consider due to pneumonia or/and sepsis-induced ARDS - Currently on BiPAP, high risk for intubation if not improved. - Closely monitor patient in ICU, keep her nothing by mouth at this point for possible intubation - The intubation options discussed with family and patient, they agrees intubation if necessary. - Check ABG - Time Spent With Patient Total time spent is greater than 50% in coordination of care (as documented) at patient's floor/unit and/or counseling patient: 40 minutes Greater than 35 minutes
[2017-08-28] MEDS ORDERED: Vancomycin (wt based) 1,000 MG VIAL IVPB SCH (01:00)
[2017-08-28] MEDS ORDERED: 0.9 % Sodium Chloride 1,000 ML IVC SCH (01:00)
[2017-08-28 02:20] LABS: Basophils % 0.4 %; Eosinophils # 0.1 K/mcL (0.0-0.6); Eosinophils % 2.2 %; Hematocrit 44.5 % (35.3-44.9); Hemoglobin 15.4 g/dL (11.5-15.4); Immature Granulocytes % 0.7 % (0-4); Immature Platelets 5.1 % (1.1-6.1); Lymphocytes # 0.2 K/mcL (0.6-4.6); Lymphocytes % 5.5 %; Mean Corpuscular HGB Conc 34.6 g/dL (31.6-35.5); Mean Corpuscular Hemoglobin 31.9 pg (28.0-33.3); Mean Corpuscular Volume 92.1 fL (83.0-100.0); Mean Platelet Volume 10.8 fL (9.4-12.4); Monocytes # 0.2 K/mcL (0.0-1.3); Monocytes % 7.4 %; Neutrophils # 2.3 K/mcL (1.6-8.9); Red Blood Count 4.83 M/mcL (3.82-4.97); Red Cell Distribution Width 13.4 % (11.5-14.5); Segmented Neutrophils % 83.8 %
[2017-08-28 02:37] LABS: BUN/Creatinine Ratio 39 (6-26); Blood Urea Nitrogen 35 mg/dL (8-23); Calcium 8.1 mg/dL (8.6-10.3); Carbon Dioxide 21 mEq/L (23-29); Chloride 105 mEq/L (98-107); Glucose 75 mg/dL (70-105); Magnesium 1.7 mg/dL (1.6-2.6); Osmolality,Calculated 283 (280-300); Phosphorous 2.7 mg/dL (2.7-4.5); Potassium 3.9 mEq/L (3.5-5.1); Sodium 133 mEq/L (136-145); eGFR For African Americans > 60 (> 60); eGFR For Non-African Americans > 60 (> 60)
[2017-08-28 02:40] LABS: Platelet Count 125 K/mcL (140-400)
[2017-08-28 02:47] LABS: Reactive Lymphocytes Present (Not Present)
[2017-08-28 02:48] LABS: Platelet Estimate Normal (Normal)
[2017-08-28 02:51] LABS: Troponin I 0.16 ng/mL (< 0.04)
[2017-08-28 02:57] LABS: ABG Base Excess -6 mEq/L (-2 to 3); ABG HCO3 18 mEq/L (21-27); ABG Oxygen Saturation 97 % (95-98); ABG PCO2 30 mmHg (35-45); ABG PH 7.39 pH Units (7.32-7.45); ABG PO2 94 mmHg (85-104); ABG TCO2 19 mEq/L (20-26)
[2017-08-28] MEDS: Ipratropium/Albuterol Neb 3 ML IH SCH ×6 (03:13→23:29)
[2017-08-28] MEDS: Piperacillin/Tazobactam 3.375 GM in 0.9 % Sodium Chloride Mini Bag 100 ML IVPB SCH ×4 (03:13→23:05)
[2017-08-28 04:21] LABS: Bilirubin,Urine Negative (Negative); Blood,Urine Large (Negative); Clarity,Urine Cloudy (Clear); Color,Urine Dark Yellow (Yellow); Glucose,Urine (UA) Normal (Normal); Ketones,Urine Trace mg/dL (Negative); Leukocyte Esterase,Urine Negative (Negative); Nitrite,Urine Negative (Negative); Protein,Urine 100 mg/dL (Neg-Trace); Specific Gravity,Urine 1.027 (1.010-1.025); Urobilinogen,Urine Normal (Normal)
[2017-08-28 04:23] LABS: Squamous Epithelial Cell,Urine Many per lpf (None-Few)
[2017-08-28 04:32] LABS: Bacteria,Urine Few per hpf (None-Few)
[2017-08-28 04:33] LABS: Hyaline Casts,Urine Few per lpf (None-Few); RBC,Urine 0-3 per hpf (0-3)
[2017-08-28] MEDS ORDERED: D5% in 0.45% NACL 1,000 ML IVC SCH (06:15)
[2017-08-28] MEDS: *HR* Heparin 5,000 UNIT/ML VIAL SQ SCH ×2 (06:22→17:59)
[2017-08-28] MEDS ORDERED: Levalbuterol Neb 1.25 MG/3 ML IH SCH (06:45)
[2017-08-28] MEDS ORDERED: Aminoglycoside Consult 1 EACH MC ONE (07:51)
[2017-08-28] MEDS ORDERED: Piperacillin/Tazobactam 3.375 GM in 0.9 % Sodium Chloride Mini Bag 100 ML IVPB SCH (08:00)
[2017-08-28] MEDS: methylPREDNISolone 125 MG/2 ML VIAL IVP SCH ×3 (08:00→23:06)
[2017-08-28] MEDS ORDERED: Acetaminophen 325 MG TABLET PO PRN (08:29)
--- NOTE | 2017-08-28 08:48 | Pulmonology Consult Note ---
<Chito Cano W - Last Filed: 08/28/17 09:54> Date of Encounter: 08/28/17 Medications and Allergies Atorvastatin [Lipitor] 40 mg PO HS 11/12/16 [History] Celecoxib [Celebrex] 200 mg PO DAILY 11/12/16 [History] Clopidogrel [Plavix] 75 mg PO DAILY 11/12/16 [History] HYDROcodone/Acet 5/325 mg [[place] 5-325 mg] 1 tab PO Q6HR PRN 11/12/16 [History] Isosorbide MONOnitrate (24 HR) [Imdur] 30 mg PO DAILY 11/12/16 [History] Levothyroxine [Synthroid] 75 mcg PO DAILY 11/12/16 [History] Metoprolol [Lopressor] 25 mg PO BID 11/12/16 [History] Omeprazole [PriLOSEC] 40 mg PO BID 11/12/16 [History] Potassium Chloride [Klor-Con Sprinkle] 16 meq PO BID 11/12/16 [History] Aspirin 81 mg PO DAILY 11/13/16 [History] buPROPion HCl [Zyban] 150 mg BID 11/13/16 [History] Gabapentin [Neurontin] 300 mg PO TID capsule 11/15/16 [Rx] GuaiFENesin ER [Mucinex] 600 mg PO BID tbbp.12hr 11/15/16 [Rx] Nicotine Patch [Nicoderm] 14 mg TD DAILY patch.td24 11/15/16 [Rx] predniSONE [Prednisone] 10 mg PO DAILY #10 tab.ds.pk 11/15/16 [Rx] predniSONE [PredniSONE] 40 mg PO DAILY #14 tablet 02/02/17 [Rx] 3 Allergy/AdvReac Type Severity Reaction Status Date / Time acetaminophen [From Percocet] Allergy Nausea Verified 02/02/17 16:16 Oxycodone [From Percocet] Allergy Nausea Verified 02/02/17 16:16 rofecoxib [From Vioxx] Allergy Swelling Verified 02/02/17 16:16 of Lip/Tongue/Throat DYE(mylogram) Allergy Vomiting Uncoded 12/10/16 23:48 All Systems: The remainder of the systems were reviewed and are negative Physical Examination Vital Signs: Vital Signs, Last 4 Hours Temp Pulse Resp BP Pulse Ox 08/28/17 08:12 99.1 F 08/28/17 08:00 130 47 111/48 89 08/28/17 07:00 130 43 121/62 93 08/28/17 06:10 129 39 110/59 93 08/28/17 05:00 118 36 102/53 93 Results - Laboratory Findings CBC and BMP: 08/28/17 01:58 08/28/17 01:58 ABG ABG pH 7.39 pH Units (7.32-7.45) 08/28/17 02:52 ABG pCO2 30 mmHg (35-45) L 08/28/17 02:52 ABG pO2 94 mmHg (85-104) 08/28/17 02:52 ABG O2 Saturation 97 % (95-98) 08/28/17 02:52 Abnormal lab findings: Abnormal lab results WBC 2.7 K/mcL (4.3-11.1) L 08/28/17 01:58 Plt Count 125 K/mcL (140-400) L 08/28/17 01:58 Lymphocytes # 0.2 K/mcL (0.6-4.6) L 08/28/17 01:58 Reactive Lymphocytes Present (Not Present) A 08/28/17 01:58 ABG pCO2 30 mmHg (35-45) L 08/28/17 02:52 ABG HCO3 18 mEq/L (21-27) L 08/28/17 02:52 ABG Total CO2 19 mEq/L (20-26) L 08/28/17 02:52 ABG Base Excess -6 mEq/L (-2 to 3) L 08/28/17 02:52 Sodium 133 mEq/L (136-145) L 08/28/17 01:58 Carbon Dioxide 21 mEq/L (23-29) L 08/28/17 01:58 BUN 35 mg/dL (8-23) H 08/28/17 01:58 BUN/Creatinine Ratio 39 (6-26) H 08/28/17 01:58 POC Glucose 67 mg/dL (70-99) L 08/28/17 06:52 Calcium 8.1 mg/dL (8.6-10.3) L 08/28/17 01:58 Troponin I 0.16 ng/mL (< 0.04) H* 08/28/17 01:58 Urine Clarity Cloudy (Clear) A 08/28/17 04:07 Ur Specific [place] 1.027 (1.010-1.025) H 08/28/17 04:07 Urine Protein 100 mg/dL (Neg-Trace) H 08/28/17 04:07 Urine Ketones Trace mg/dL (Negative) H 08/28/17 04:07 Urine Blood Large (Negative) H 08/28/17 04:07 Urine Microscopic WBC 3-5 per hpf (0-3) H 08/28/17 04:07 Ur Squamous Epith Cells Many per lpf (None-Few) H 08/28/17 04:07 - Clinical Findings Intake & Output: Intake & Output 08/27/17 08/28/17 08/28/17 23:59 07:59 15:59 Intake Total 1100 / 1100 Output Total 300 / 300 75 / 75 Balance 800 / 800 -75 / -75 Weight 45.5 kg Consult Discharge Plan - Plan Referrals: Idania Sun DO [Primary Care Provider] - - Attending Attestation I examined this patient and my medical decision-making was reviewed with the Resident Physician. I agree with the documented findings, disposition and treatment plan as described except to the extent set forth below. We independently had [id number] contact with the patient I spent 32min of Critical Care time with this patient. It involved decision making of high complexity to assess, manipulate, and support vital organ system failure and/or to prevent further life threatening deterioration of the patient' s condition. The time involved in the performance of separately reportable procedures was not counted toward critical care time. Patient seen and examined at bedside Labs, radiology, chart personally reviewed. Management was reviewed during multidisciplinary critical care rounds. 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 It does not appear to be interfering with her respiratory status at this time however Pulm: Acute hypoxemic respiratory failure requiring positive airway pressure support a continuous basis secondary to severe community-acquired pneumonia. Very high risk for further decline requiring endotracheal intubation we will have to monitor her closely in ICU for this. She also has COPD with COPD exacerbation she is getting bronchodilator therapy steroids and antibiotics. I visualized the right lower lung under ultrasound at bedside there is no evidence of effusion/empyema but there is noted consolidated lung with significant atelectasis Cards: Currently hemodynamically stable she has been received crystalloid infusion for severe sepsis she has evidence of troponin elevation which I suspect his type II [place] secondary to demand ischemia echocardiogram has been ordered on an urgent basis all trend her troponin cardiology consultation ACS protocol if clinically worsens, evidence WMAs on ECHO or troponins continue to climb. GI: No active issues at present Nutrition: Nothing by mouth for now Renal: UOP Monitored, Cont to Trend sCr and monitor Electrolytes. ID: Severe sepsis secondary to community-acquired pneumonia and she is on broad- spectrum antibiotic with planned to de-escalate based upon culture and sensitivities Heme/Onc: DVT prophylaxis given Endo: Glucose Monitored Integ/MSK: Skin Care per routine ICU Nursing Protocol to prevent ulcers. Lines: All lines examined without evidence of infection : Dispo: Remain in ICU for high risk of deterioration requiring intubation CODE: Full code <OkDestiney branch N - Last Filed: 08/28/17 11:02> Date of Encounter: 08/28/17 Time of Encounter: 08:48 Assessment and Plan (1) Sepsis Current Visit: Yes Status: Acute Sepsis in the setting of bilateral pneumonia and chronic COPD Patient meets sepsis criteria due to tachycardia, tachypnea, and leukocytopenia. Most likely source is pneumonia. Patient received 2 L of fluid overnight Lactic acid on admission was 2.7 this has trended down to 2.1 this morning Patient received Levaquin and is currently on daily vancomycin and Zosyn. We will follow up on blood cultures, respiratory cultures, viral PCR, and urinary antigens for Legionella and strep pneumonia Patient is currently on BiPAP, we will attempt trials of high flow oxygen to determine if she can be weaned down Qualifiers: Sepsis type: Pneumococcus Qualified Code(s): A40.3 - Sepsis due to Streptococcus pneumoniae (2) Elevated troponin Current Visit: Yes Status: Acute Patient has sepsis secondary to pneumonia, she was hypoxic on arrival. She had an elevated lactic acid on admission as well. Elevated troponins are most likely secondary to demand ischemia. Patient denies chest pain at this time Troponins have trended down, on admission troponin was 0.19, latest troponin from this morning was at 0.11 An EKG from this morning was reviewed by myself and the attending. EKG findings reveal sinus tachycardia at a rate of 129 bpm, RI interval 166, QRS duration 104 and QTC of 395. [place] is normal with normal R-wave progression. There are no ischemic changes or T-wave abnormalities. Will obtain monitor one more troponin and consult cardiology if troponin rises. Echo has been ordered to evaluate patient's cardiac function (3) Pneumonia Current Visit: Yes Status: Acute Patient has chest x-ray findings consistent with bilateral pneumonia, and she has clinical and lab findings highly suggestive of severe sepsis. Patient received levofloxacin Patient recovered broad-spectrum antibiotics vancomycin and Zosyn Pending viral PCR, blood cultures, sputum cultures, and urinary antigens we will assess the possibility of de-escalating patient's antibiotics Qualifiers: Pneumonia type: due to Pneumococcus Laterality: right Lung location: lower lobe of lung Qualified Code(s): J13 - Pneumonia due to Streptococcus pneumoniae (4) COPD exacerbation Current Visit: Yes Status: Chronic Patient is hypoxic in the setting of pneumonia and sepsis. She has underlying chronic COPD which she manages at home with albuterol treatments. She denies at home oxygen use. She is receiving oxygen via BiPAP, will try to wean down to high flow if patient can maintain adequate O2 saturation Patient is currently receiving scheduled DuoNeb's every 4 hours, she will also receive as needed albuterol treatments Every 2 hours She is also receiving Solu-Medrol 60 mg every 8 hours (5) DVT prophylaxis Current Visit: No Status: Acute Subcutaneous heparin (6) CAD (coronary artery disease) Current Visit: No Status: Chronic Reported history of prior WA with stenting 2 Initial troponin on admission was 0.19 this has trended down to 0.11, this is likely secondary to demand ischemia we will continue to trend troponins until within normal range We will consult cardiology if troponin rises. Qualifiers: Coronary Disease-Associated Artery/Lesion type: [place] artery [place] vs. transplanted heart: [place] heart Associated angina: angina presence unspecified Qualified Code(s): I25.10 - Atherosclerotic heart disease of [place] coronary artery without angina pectoris (7) Acute respiratory failure with hypoxemia Current Visit: Yes Status: Acute Patient was hypoxic with oxygen saturation in the 70s and room air This is improved with BiPAP Patient's ABG while on BiPAP revealed a pH of 7.39, PCO2 of 30, PO2 of 94, bicarbonate of 18 Etiology of patient's hypoxia is most likely secondary to pneumonia Patient is currently being monitored while on BiPAP, attempts will be made to wean down patient to high flow; however, if patient desaturates while on BiPAP intubation may be necessary. History of Present Illness Consult date: 08/28/17 Requesting physician: Levi May Reason for consult: pneumonia (Bilateral pneumonia, history COPD) Chief complaint: Shortness of breath, cough, fever History of present illness: Mrs. Cat is 71-year-old female with a past medical history of COPD, CAD, and prior WA with stenting 2 who presented to the ER via EMS yesterday for a 2 day history of shortness of breath, cough productive of brown sputum, chills, and fevers. She was found to have O2 saturation in the 70s with a recorded axillary temperature of 101. She was placed on 15 L nonrebreather and began saturating in the upper 80s. In the emergency department she was tachycardic and tachypneic with a heart rate of 140s and a respiratory rate of 45. She was started on BiPAP, DuoNeb's, and Solu-Medrol. A chest x-ray was taken at that time which was indicative of bilateral pneumonia. Patient has not had a hospital stay in the past 3 months. A Pneumonia severity index calculated for the patient places the patient in the moderate to high risk category. Patient was admitted to the ICU for observation and IV antibiotics as well as respiratory care via BiPAP. Past Med Surg Social Fam HX - Past Medical History Medical history: arthritis, COPD, coronary artery disease, GERD, hyperlipidemia , hypertension, myocardial infarction, thyroid disease, other Additional medical history: Chronic Back Pain Psychiatric history: no psych history - Past Surgical History Surgical History: other Additional surgical history: Back Sx , CARDIAC STENT X 2 - Social History Smoking Status: Current every day smoker Smokeless Tobacco Status: No Alcohol use: none Drug use: none - Family History Father Living Status: Mother Living Status: Still Living Hx Family Cardiac Disorders: Yes (Heart disease hypertension) Brother Adopted: No Family Member Ethnicity: Non- Living Status: Hx Family Cardiac Disorders: Yes Hx Family Respiratory Disorders: Yes Hx Family Cancer: Yes (Mother malignant melanoma) Hx Family GI Disorders: No Hx Family Endocrine Disorder: Yes (Thyroid disorder) Hx Family Neuromuscular Disorders: No Hx Family Neurologic Disorders: No Hx Family HEENT Disorders: No Hx Family Autoimmune Disorders: No All Systems: The remainder of the systems were reviewed and are negative - Constitutional Constitutional: fever(s) - EENT Nose, mouth and throat: dry mouth (Secondary to BiPAP) - Cardiovascular Cardiovascular: dyspnea, rapid heart rate, no chest pain - Respiratory Respiratory: cough, dyspnea - Gastrointestinal Gastrointestinal: no abdominal pain - Genitourinary Genitourinary: no dysuria - Psychiatric Psychiatric: other (Anxious) Physical Examination Vital Signs: Vital Signs, Last 4 Hours Temp Pulse Resp BP Pulse Ox 08/28/17 08:12 99.1 F 08/28/17 08:00 130 47 111/48 89 08/28/17 07:00 130 43 121/62 93 08/28/17 06:10 129 39 110/59 93 08/28/17 05:00 118 36 102/53 93 General appearance: other (Anxious, uncomfortable, cachectic in appearance) Eyes: nonicteric ENT: other (BiPAP is in place) Neck: no JVD Effort: other (Tachypnic) Auscultation: bilateral: rhonchi (Diffuse bilaterally) Cardiovascular: other (Tachycardic, regular rhythm, no murmurs noted) Gastrointestinal: normoactive bowel sounds, soft, non-distended Extremities: other (Pain on palpation of the lower extremities, upper anthony pulses are palpable, no cyanosis) Musculoskeletal: no deformities other (Patient is awake and alert, communicates appropriately) anxious Results - Laboratory Findings CBC and BMP: 08/28/17 01:58 08/28/17 01:58 ABG ABG pH 7.39 pH Units (7.32-7.45) 08/28/17 02:52 ABG pCO2 30 mmHg (35-45) L 08/28/17 02:52 ABG pO2 94 mmHg (85-104) 08/28/17 02:52 ABG O2 Saturation 97 % (95-98) 08/28/17 02:52 Abnormal lab findings: Abnormal lab results WBC 2.7 K/mcL (4.3-11.1) L 08/28/17 01:58 Plt Count 125 K/mcL (140-400) L 08/28/17 01:58 Lymphocytes # 0.2 K/mcL (0.6-4.6) L 08/28/17 01:58 Reactive Lymphocytes Present (Not Present) A 08/28/17 01:58 ABG pCO2 30 mmHg (35-45) L 08/28/17 02:52 ABG HCO3 18 mEq/L (21-27) L 08/28/17 02:52 ABG Total CO2 19 mEq/L (20-26) L 08/28/17 02:52 ABG Base Excess -6 mEq/L (-2 to 3) L 08/28/17 02:52 Sodium 133 mEq/L (136-145) L 08/28/17 01:58 Carbon Dioxide 21 mEq/L (23-29) L 08/28/17 01:58 BUN 35 mg/dL (8-23) H 08/28/17 01:58 BUN/Creatinine Ratio 39 (6-26) H 08/28/17 01:58 POC Glucose 67 mg/dL (70-99) L 08/28/17 06:52 Calcium 8.1 mg/dL (8.6-10.3) L 08/28/17 01:58 Troponin I 0.16 ng/mL (< 0.04) H* 08/28/17 01:58 Urine Clarity Cloudy (Clear) A 08/28/17 04:07 Ur Specific [place] 1.027 (1.010-1.025) H 08/28/17 04:07 Urine Protein 100 mg/dL (Neg-Trace) H 08/28/17 04:07 Urine Ketones Trace mg/dL (Negative) H 08/28/17 04:07 Urine Blood Large (Negative) H 08/28/17 04:07 Urine Microscopic WBC 3-5 per hpf (0-3) H 08/28/17 04:07 Ur Squamous Epith Cells Many per lpf (None-Few) H 08/28/17 04:07 - Diagnostic Findings Chest x-ray: report reviewed, image reviewed - Clinical Findings Intake & Output: Intake & Output 08/27/17 08/28/17 08/28/17 23:59 07:59 15:59 Intake Total 1100 / 1100 Output Total 300 / 300 75 / 75 Balance 800 / 800 -75 / -75 Weight 45.5 kg
[2017-08-28] MEDS ORDERED: D5% in Water 1,000 ML IVC PRN (09:56)
[2017-08-28] MEDS ORDERED: *HR* Dextrose 50 % in Water (Syg) 50 ML SYRINGE IVP PRN (09:56)
[2017-08-28] MEDS ORDERED: Dextrose Gel 15 GM/37.5 ML TUBE PO PRN ×2 (09:56)
[2017-08-28 10:40] LABS: Adenovirus Not Detected (Not Detect); Bordetella Pertussis Not Detected (Not Detect); Chlamydophila pneumoniae Not Detected (Not Detect); Coronavirus 229E Not Detected (Not Detect); Coronavirus HKU1 Not Detected (Not Detect); Coronavirus NL63 Not Detected (Not Detect); Coronavirus OC43 Not Detected (Not Detect); Human Metapneumovirus Not Detected (Not Detect); Human Rhinovirus/Enterovirus Not Detected (Not Detect); Influenza A Subtype 2009 H1 Not Detected (Not Detect); Influenza A Untypeable Not Detected (Not Detect); Influenza B Not Detected (Not Detect); Mycoplasma pneumoniae Not Detected (Not Detect); Parainfluenza Virus 1 Not Detected (Not Detect); Parainfluenza Virus 2 Not Detected (Not Detect); Parainfluenza Virus 3 Not Detected (Not Detect); Parainfluenza Virus 4 Not Detected (Not Detect); Respiratory Syncytial Virus Not Detected (Not Detect)
[2017-08-28 14:58] LABS: Acinetobacter baumannii by PCR Not Detected (Not Detect); Candida albicans by PCR Not Detected (Not Detect); Candida glabrata by PCR Not Detected (Not Detect); Candida krusei by PCR Not Detected (Not Detect); Candida parapsilosis by PCR Not Detected (Not Detect); Candida tropicalis by PCR Not Detected (Not Detect); Enterococcus by PCR Not Detected (Not Detect); Escherichia coli by PCR Not Detected (Not Detect); Klebsiella oxytoca by PCR Not Detected (Not Detect); Klebsiella pneumoniae by PCR Not Detected (Not Detect); Pseudomonas aeruginosa by PCR Not Detected (Not Detect); Serratia marcescens by PCR Not Detected (Not Detect); Staphylococcus aureus by PCR ***DETECTED*** (Not Detect); Streptococcus agalactiae(B)PCR Not Detected (Not Detect); Streptococcus by PCR Not Detected (Not Detect); Streptococcus pneumoniae PCR Not Detected (Not Detect); Streptococcus pyogenes (A) PCR Not Detected (Not Detect); mecA Methicillin-Resist Gene Not Detected (Not Detect)
[2017-08-28 17:19] LABS: Basophils % 0.1 %; Eosinophils % 0.1 %; Hematocrit 41.8 % (35.3-44.9); Immature Granulocytes % 2.5 % (0-4); Lymphocytes # 0.4 K/mcL (0.6-4.6); Lymphocytes % 3.6 %; Mean Corpuscular HGB Conc 33.5 g/dL (31.6-35.5); Mean Corpuscular Hemoglobin 31.1 pg (28.0-33.3); Mean Corpuscular Volume 92.9 fL (83.0-100.0); Mean Platelet Volume 10.5 fL (9.4-12.4); Monocytes # 0.3 K/mcL (0.0-1.3); Monocytes % 2.8 %; Platelet Count 124 K/mcL (140-400); Red Cell Distribution Width 13.6 % (11.5-14.5); Segmented Neutrophils % 90.9 %
[2017-08-28 17:21] LABS: Neutrophils # 10.7 K/mcL (1.6-8.9)
[2017-08-28 17:38] LABS: Platelet Estimate Decreased (Normal)
[2017-08-28 17:39] LABS: BUN/Creatinine Ratio 36 (6-26); Blood Urea Nitrogen 28 mg/dL (8-23); Calcium 8.5 mg/dL (8.6-10.3); Carbon Dioxide 17 mEq/L (23-29); Chloride 108 mEq/L (98-107); Glucose 75 mg/dL (70-105); Osmolality,Calculated 284 (280-300); Potassium 3.7 mEq/L (3.5-5.1); Sodium 135 mEq/L (136-145); eGFR For African Americans > 60 (> 60); eGFR For Non-African Americans > 60 (> 60)
[2017-08-28] MEDS ORDERED: Levofloxacin 750 MG/150 ML 750 MG/150 ML BAG IVPB SCH (23:00)
[2017-08-29] MEDS: Magic Mouthwash 10 ML UD Cup PO SCH ×4 (02:47→18:57)
[2017-08-29] MEDS ORDERED: Ipratropium 1 PUFF INHALER IH SCH (04:00)
[2017-08-29] MEDS: Levalbuterol Neb 0.63 MG/3 ML IH SCH ×4 (04:06→21:36)
[2017-08-29] MEDS: Ipratropium Neb 0.5 MG NEBULIZER IH SCH ×4 (04:06→21:36)
[2017-08-29 06:19] LABS: Basophils % 0.1 %; Hematocrit 40.1 % (35.3-44.9); Hemoglobin 13.7 g/dL (11.5-15.4); Immature Granulocytes % 5.1 % (0-4); Lymphocytes # 0.4 K/mcL (0.6-4.6); Mean Corpuscular HGB Conc 34.2 g/dL (31.6-35.5); Mean Corpuscular Hemoglobin 31.5 pg (28.0-33.3); Mean Corpuscular Volume 92.2 fL (83.0-100.0); Mean Platelet Volume 10.6 fL (9.4-12.4); Monocytes # 0.5 K/mcL (0.0-1.3); Monocytes % 2.8 %; Neutrophils # 16.6 K/mcL (1.6-8.9); Platelet Count 136 K/mcL (140-400); Red Blood Count 4.35 M/mcL (3.82-4.97); Red Cell Distribution Width 13.7 % (11.5-14.5)
[2017-08-29] MEDS: *HR* Heparin 5,000 UNIT/ML VIAL SQ SCH ×2 (06:33→18:57)
[2017-08-29 06:39] LABS: Platelet Estimate Normal (Normal)
[2017-08-29 06:40] LABS: Toxic Granulation Present (Not Present)
[2017-08-29 06:45] LABS: BUN/Creatinine Ratio 42 (6-26); Blood Urea Nitrogen 30 mg/dL (8-23); Calcium 9.2 mg/dL (8.6-10.3); Carbon Dioxide 16 mEq/L (23-29); Chloride 110 mEq/L (98-107); Glucose 81 mg/dL (70-105); Osmolality,Calculated 291 (280-300); Potassium 3.2 mEq/L (3.5-5.1); Sodium 138 mEq/L (136-145); eGFR For African Americans > 60 (> 60); eGFR For Non-African Americans > 60 (> 60)
--- NOTE | 2017-08-29 07:51 | Pulmonology Progress Note ---
<Destiney Camacho N - Last Filed: 08/29/17 15:18> Date of Encounter: 08/29/17 Time of Encounter: 07:51 Assessment and Plan (1) Sepsis Current Visit: Yes Status: Acute Acute hypoxemic respiratory failure requiring BiPAP likely secondary to pneumonia Serology was positive for MSSA Patient is high risk for intubation will continue to monitor status Patient and her son understand and agree to possible need for intubation Will continue patient on BiPAP support Continue steroids and bronchodilator therapy for COPD Antibiotics were deescalated to nafcillin Qualifiers: Sepsis type: Pneumococcus Qualified Code(s): A40.3 - Sepsis due to Streptococcus pneumoniae (2) Atrial fibrillation, new onset Current Visit: Yes Status: Resolved Patient experienced one episode of A. fib while off BiPAP Patient remained relatively asymptomatic during this time; however, her blood pressure decreased to approximately 95/60. She received 11.25 mg of diltiazem Patient returned to sinus tachycardia and her blood pressure increased to normal range This is a new onset A. fib for the patient, likely secondary to cardiac stress under hypoxemia Troponin was collected which is elevated at 0.11, will trend troponins and consult cardiology if it rises. (3) Elevated troponin Current Visit: Yes Status: Acute Another troponin was collected today during patient's episode of A. fib Troponin resulted at 0.11, which was the lowest reading recorded on her day of admission. EKG recording before the troponin collection revealed A. fib with RVR, however there were no ischemic changes We will trend troponins and consult cardiology of troponin rises An echo was performed today, pending results (4) Pneumonia Current Visit: Yes Status: Acute Patient has chest x-ray findings consistent with bilateral pneumonia, interval increase in pneumonia versus pulmonary edema Antibiotics have been switched to nafcillin Sputum cultures grew gram-positive cocci, serology positive for staph Most likely infectious agent for pneumonia is MSSA Continue antibiotic therapy, collect ABG, trend WBC count, repeat chest x-ray in the morning Qualifiers: Pneumonia type: due to Pneumococcus Laterality: right Lung location: lower lobe of lung Qualified Code(s): J13 - Pneumonia due to Streptococcus pneumoniae (5) COPD exacerbation Current Visit: Yes Status: Chronic Patient is receiving steroids and bronchodilator therapy Lungs are diffusely rhonchorous on exam Collect ABG and maintain patient on BiPAP for now Patient is high risk for intubation, patient and her son are both agreeable to possible need for intubation in the future if patient deteriorates while on BiPAP. (6) DVT prophylaxis Current Visit: No Status: Acute Subcutaneous heparin (7) CAD (coronary artery disease) Current Visit: No Status: Chronic Reported history of prior MA with stenting 2, initial troponin admission was 0.19, which trended down to 0.11 Troponin obtained today during patient's episode of A. fib with RVR and hypoxemia resulted at 0.11 We will follow with echo results to assess cardiac function Consider consulting cardiology if patient's troponin rises Trend troponin Qualifiers: Coronary Disease-Associated Artery/Lesion type: [place] artery [place] vs. transplanted heart: [place] heart Associated angina: angina presence unspecified Qualified Code(s): I25.10 - Atherosclerotic heart disease of [place] coronary artery without angina pectoris (8) Acute respiratory failure with hypoxemia Current Visit: Yes Status: Acute Patient was hypoxemic today while on high flow oxygen, when we started on BiPAP she continued to maintain her O2 saturation around 85% and then entered A. fib with RVR O2 saturation on BiPAP was increased to 100% and her A. fib was treated Patient was given Precedex Eventually patient's O2 saturation improved on BiPAP and she is now saturating around 100% percent Patient is high risk for intubation, closely monitor and assess need for future intubation ABG's pending Subjective Principal diagnosis: Acute hypoxemic respiratory failure secondary to pneumonia and sepsis Interval history: Patient seen and examined at bedside this morning with the attending present. Patient remains on BiPAP for respiratory support. She has had persistent tachycardia and tachypnea overnight. An echo was obtained today, we are awaiting results. A chest x-ray revealed worse aeration with increased pulmonary edema versus pneumonia, and serum serologies were collected which were were positive for methicillin sensitive staph aureus. Decision was made to de-escalate patient's antibiotics to nafcillin. A CT scan was ordered however the patient refused to comply with the CT scan until after she ate breakfast. Patient was ordered a clear liquid diet and was placed on high flow oxygen during her meal and she was saturating around 85% at this time. After the patient had completed her meal her tachycardia had increased to 160 bpm. At this time an EKG was ordered which revealed A. fib with RVR. Patient received 11.25 mg of Cardizem to attempt to abort the arrhythmia and was placed back on BiPAP. During this time the patient's O2 saturation on BiPAP was around 85% and BiPAP had to be increased to 100% O2 to increase O2 saturation. Patient returned to normal sinus rhythm without the need for a Cardizem drip and she received Precedex to aid her in rest. Patient is currently saturating in the upper 90s on BiPAP. Communicated with the patient and her son about the possibility of intubation if patient is to deteriorate while on BiPAP, both the patient and her son understand and would like to pursue intubation if necessary. Objective PUL Vital signs: Last Vital Signs Temp 99 F 08/29/17 00:39 Pulse 128 08/29/17 06:00 Resp 40 08/29/17 06:00 BP 114/57 08/29/17 06:00 Pulse Ox 92 08/29/17 06:00 General appearance: other (Tachypneic, appears uncomfortable) Eyes: nonicteric ENT: other (On BiPAP) Neck: supple Effort: other (Using accessory respiratory muscles) Auscultation: bilateral: rhonchi (Diffuse rhonchorous breath sounds bilaterally) Cardiovascular: other (Tachycardia with rates varying from 120-170, EKG revealed A. fib with RVR.) Gastrointestinal: normoactive bowel sounds, soft, non-tender, non-distended Integumentary: normal Extremities: no cyanosis Musculoskeletal: no deformities normal mental status, non-focal exam anxious, other (Patient is markedly anxious) Results - Laboratory Findings CBC and BMP: 08/29/17 06:05 08/29/17 06:05 ABG ABG pH 7.39 pH Units (7.32-7.45) 08/28/17 02:52 ABG pCO2 30 mmHg (35-45) L 08/28/17 02:52 ABG pO2 94 mmHg (85-104) 08/28/17 02:52 ABG O2 Saturation 97 % (95-98) 08/28/17 02:52 Abnormal lab findings: Abnormal lab results WBC 18.4 K/mcL (4.3-11.1) H D 08/29/17 06:05 Plt Count 136 K/mcL (140-400) L 08/29/17 06:05 Immature Gran % 5.1 % (0-4) H 08/29/17 06:05 Neutrophils # 16.6 K/mcL (1.6-8.9) H 08/29/17 06:05 Lymphocytes # 0.4 K/mcL (0.6-4.6) L 08/29/17 06:05 Reactive Lymphocytes Present (Not Present) A 08/28/17 01:58 Toxic Granulation Present (Not Present) A 08/29/17 06:05 ABG pCO2 30 mmHg (35-45) L 08/28/17 02:52 ABG HCO3 18 mEq/L (21-27) L 08/28/17 02:52 ABG Total CO2 19 mEq/L (20-26) L 08/28/17 02:52 ABG Base Excess -6 mEq/L (-2 to 3) L 08/28/17 02:52 Potassium 3.2 mEq/L (3.5-5.1) L 08/29/17 06:05 Chloride 110 mEq/L (98-107) H 08/29/17 06:05 Carbon Dioxide 16 mEq/L (23-29) L 08/29/17 06:05 BUN 30 mg/dL (8-23) H 08/29/17 06:05 BUN/Creatinine Ratio 42 (6-26) H 08/29/17 06:05 Troponin I 0.11 ng/mL (< 0.04) H* 08/28/17 08:12 Urine Clarity Cloudy (Clear) A 08/28/17 04:07 Ur Specific [place] 1.027 (1.010-1.025) H 08/28/17 04:07 Urine Protein 100 mg/dL (Neg-Trace) H 08/28/17 04:07 Urine Ketones Trace mg/dL (Negative) H 08/28/17 04:07 Urine Blood Large (Negative) H 08/28/17 04:07 Urine Microscopic WBC 3-5 per hpf (0-3) H 08/28/17 04:07 Ur Squamous Epith Cells Many per lpf (None-Few) H 08/28/17 04:07 Staphylococcus sp PCR DETECTED (Not Detect) A 08/27/17 21:42 Staph aureus (PCR) DETECTED (Not Detect) A 08/27/17 21:42 - Microbiology Findings Microbiology Findings: Microbiology, Last 48 Hours 08/29/17 06:05 Blood Culture - Preliminary Peripheral Venipuncture Culture is incubating and being continuously monitored for growth. Final report to follow. 08/28/17 09:30 Sputum Culture - Preliminary Sputum 08/28/17 09:30 Legionella Antigen - Final Urine,[place] 08/28/17 09:30 Streptococcus pneumoniae Antigen (M - Final Urine,[place] - Diagnostic Findings Chest x-ray: report reviewed, image reviewed Additional studies: EKG recorded was reviewed by myself, indicative of A. fib with RVR with a rate of 176 bpm, QRS 101, and QTC 305. [place] is normal and there is normal R-wave progression. There are no signs of ischemic changes. - Clinical Findings Intake & Output: Intake & Output 08/28/17 08/28/17 08/29/17 15:59 23:59 07:59 Intake Total 100 / 100 350 / 350 Output Total 525 / 525 200 / 200 Balance -425 / -425 350 / 350 -200 / -200 Consult Discharge Plan - Plan Referrals: Idania Snu DO [Primary Care Provider] - <Radha Puri - Last Filed: 08/30/17 08:13> Date of Encounter: 08/30/17 Objective PUL Vital signs: Last Vital Signs Temp 98.4 F 08/29/17 08:34 Pulse 160 08/29/17 09:00 Resp 43 08/29/17 09:00 BP 120/49 08/29/17 09:00 Pulse Ox 85 08/29/17 09:00 Results - Laboratory Findings CBC and BMP: 08/30/17 04:00 08/30/17 05:56 ABG ABG pH 7.39 pH Units (7.32-7.45) 08/28/17 02:52 ABG pCO2 30 mmHg (35-45) L 08/28/17 02:52 ABG pO2 94 mmHg (85-104) 08/28/17 02:52 ABG O2 Saturation 97 % (95-98) 08/28/17 02:52 Abnormal lab findings: Abnormal lab results WBC 18.4 K/mcL (4.3-11.1) H D 08/29/17 06:05 Plt Count 136 K/mcL (140-400) L 08/29/17 06:05 Immature Gran % 5.1 % (0-4) H 08/29/17 06:05 Neutrophils # 16.6 K/mcL (1.6-8.9) H 08/29/17 06:05 Lymphocytes # 0.4 K/mcL (0.6-4.6) L 08/29/17 06:05 Reactive Lymphocytes Present (Not Present) A 08/28/17 01:58 Toxic Granulation Present (Not Present) A 08/29/17 06:05 ABG pCO2 30 mmHg (35-45) L 08/28/17 02:52 ABG HCO3 18 mEq/L (21-27) L 08/28/17 02:52 ABG Total CO2 19 mEq/L (20-26) L 08/28/17 02:52 ABG Base Excess -6 mEq/L (-2 to 3) L 08/28/17 02:52 Potassium 3.2 mEq/L (3.5-5.1) L 08/29/17 06:05 Chloride 110 mEq/L (98-107) H 08/29/17 06:05 Carbon Dioxide 16 mEq/L (23-29) L 08/29/17 06:05 BUN 30 mg/dL (8-23) H 08/29/17 06:05 BUN/Creatinine Ratio 42 (6-26) H 08/29/17 06:05 Phosphorus 2.5 mg/dL (2.7-4.5) L 08/29/17 06:05 Troponin I 0.11 ng/mL (< 0.04) H* 08/28/17 08:12 Urine Clarity Cloudy (Clear) A 08/28/17 04:07 Ur Specific [place] 1.027 (1.010-1.025) H 08/28/17 04:07 Urine Protein 100 mg/dL (Neg-Trace) H 08/28/17 04:07 Urine Ketones Trace mg/dL (Negative) H 08/28/17 04:07 Urine Blood Large (Negative) H 08/28/17 04:07 Urine Microscopic WBC 3-5 per hpf (0-3) H 08/28/17 04:07 Ur Squamous Epith Cells Many per lpf (None-Few) H 08/28/17 04:07 Staphylococcus sp PCR DETECTED (Not Detect) A 08/27/17 21:42 Staph aureus (PCR) DETECTED (Not Detect) A 08/27/17 21:42 - Microbiology Findings Microbiology Findings: Microbiology, Last 48 Hours 08/29/17 06:05 Blood Culture - Preliminary Peripheral Venipuncture Culture is incubating and being continuously monitored for growth. Final report to follow. 08/28/17 09:30 Sputum Culture - Preliminary Sputum 08/28/17 09:30 Legionella Antigen - Final Urine,[place] 08/28/17 09:30 Streptococcus pneumoniae Antigen (M - Final Urine,[place] - Clinical Findings Intake & Output: Intake & Output 08/28/17 08/29/17 08/29/17 23:59 07:59 15:59 Intake Total 350 / 350 100 / 100 200 / 200 Output Total 200 / 200 200 / 200 Balance 350 / 350 -100 / -100 0 / 0 - Attending Attestation I examined this patient and my medical decision-making was reviewed with the Resident Physician. I agree with the documented findings, disposition and treatment plan as described except to the extent set forth below. Patient seen and examined. Labs, radiology, chart personally reviewed. 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 Discussed this with patient and her son at the bedside and they understand that can be risky and may not come off the ventilator if she is intubated. She is clinically worsen and her infection make her mortality rate high. Cardiovascular: Unstable and patient recieved cardizam, may need to have cardioversion. GI: Nutrition per dietary and GI prophylaxis per routine. Not tolerating oral diet. Heme: DVT prophylaxis per routine ID: Continue antibiotics and plan to de-escalation Renal; urine out put and renal funtion reviewed Endorcine: blood glucose is monitored Lines: all lines checked and no evidence of infections Skin: skin care to prevent pressure ulcers per nursing routine care I spent 35 min of Critical Care time with this patient. It involved decision making of high complexity to assess, manipulate, and support vital organ system failure and/or to prevent further life threatening deterioration of the patient' s condition. The time involved in the performance of separately reportable procedures was not counted toward critical care time.
[2017-08-29 08:32] LABS: Magnesium 1.9 mg/dL (1.6-2.6); Phosphorous 2.5 mg/dL (2.7-4.5)
[2017-08-29] MEDS: methylPREDNISolone 125 MG/2 ML VIAL IVP SCH ×3 (09:03→23:14)
[2017-08-29] MEDS: Piperacillin/Tazobactam 3.375 GM in 0.9 % Sodium Chloride Mini Bag 100 ML IVPB SCH (09:03)
[2017-08-29] MEDS ORDERED: Dexmedetomidine HCl 400 MCG/100 ML MLS IVC SCH (11:00)
[2017-08-29] MEDS: Nafcillin 2,000 MG in D5% in Water 100 ML IVPB SCH ×4 (11:25→22:18)
[2017-08-29 16:00] LABS: ABG Base Excess -4 mEq/L (-2 to 3); ABG HCO3 20 mEq/L (21-27); ABG Oxygen Saturation 88 % (95-98); ABG PCO2 35 mmHg (35-45); ABG PH 7.37 pH Units (7.32-7.45); ABG PO2 55 mmHg (85-104); ABG TCO2 21 mEq/L (20-26)
--- NOTE | 2017-08-29 17:06 | Electrocardiograph Report ---
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
[2017-08-29 17:25] LABS: BUN/Creatinine Ratio 45 (6-26); Blood Urea Nitrogen 35 mg/dL (8-23); Calcium 9.4 mg/dL (8.6-10.3); Carbon Dioxide 22 mEq/L (23-29); Chloride 110 mEq/L (98-107); Glucose 136 mg/dL (70-105); Osmolality,Calculated 302 (280-300); Phosphorous 3.4 mg/dL (2.7-4.5); Potassium 2.8 mEq/L (3.5-5.1); Sodium 141 mEq/L (136-145); eGFR For African Americans > 60 (> 60); eGFR For Non-African Americans > 60 (> 60)
--- NOTE | 2017-08-29 18:54 | Electrocardiograph Report ---
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
--- NOTE | 2017-08-29 19:11 | Electrocardiograph Report ---
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
[2017-08-29 22:25] LABS: Acinetobacter baumannii by PCR Not Detected (Not Detect); Candida albicans by PCR Not Detected (Not Detect); Candida glabrata by PCR Not Detected (Not Detect); Candida krusei by PCR Not Detected (Not Detect); Candida parapsilosis by PCR Not Detected (Not Detect); Candida tropicalis by PCR Not Detected (Not Detect); Enterococcus by PCR Not Detected (Not Detect); Escherichia coli by PCR Not Detected (Not Detect); Klebsiella oxytoca by PCR Not Detected (Not Detect); Klebsiella pneumoniae by PCR Not Detected (Not Detect); Pseudomonas aeruginosa by PCR Not Detected (Not Detect); Serratia marcescens by PCR Not Detected (Not Detect); Staphylococcus aureus by PCR DETECTED (Not Detect); Streptococcus agalactiae(B)PCR Not Detected (Not Detect); Streptococcus by PCR Not Detected (Not Detect); Streptococcus pneumoniae PCR Not Detected (Not Detect); Streptococcus pyogenes (A) PCR Not Detected (Not Detect); mecA Methicillin-Resist Gene Not Detected (Not Detect)
[2017-08-30] MEDS: Nafcillin 2,000 MG in D5% in Water 100 ML IVPB SCH ×2 (02:26→05:33)
[2017-08-30] MEDS: Levalbuterol Neb 0.63 MG/3 ML IH SCH (03:32)
[2017-08-30] MEDS: Ipratropium Neb 0.5 MG NEBULIZER IH SCH (03:32)
[2017-08-30 04:28] LABS: Hematocrit 40.2 % (35.3-44.9); Immature Granulocytes % 4.7 % (0-4); Lymphocytes # 0.6 K/mcL (0.6-4.6); Mean Corpuscular HGB Conc 34.8 g/dL (31.6-35.5); Mean Corpuscular Hemoglobin 31.7 pg (28.0-33.3); Mean Platelet Volume 10.9 fL (9.4-12.4); Monocytes # 0.6 K/mcL (0.0-1.3); Monocytes % 2.8 %; Neutrophils # 18.4 K/mcL (1.6-8.9); Platelet Count 124 K/mcL (140-400); Red Blood Count 4.42 M/mcL (3.82-4.97); Red Cell Distribution Width 13.8 % (11.5-14.5); Segmented Neutrophils % 89.5 %
[2017-08-30 04:28] LABS: VBG Ionized Calcium 1.23 mmol/L (1.15-1.35)
[2017-08-30 04:47] LABS: Burr Cells 1+ (Not Present); Platelet Estimate Decreased (Normal)
[2017-08-30] MEDS: *HR* Heparin 5,000 UNIT/ML VIAL SQ SCH (05:33)
[2017-08-30 06:07] VITALS: BP 89/76
[2017-08-30 07:04] LABS: BUN/Creatinine Ratio 55 (6-26); Blood Urea Nitrogen 45 mg/dL (8-23); Calcium 9.2 mg/dL (8.6-10.3); Carbon Dioxide 18 mEq/L (23-29); Chloride 111 mEq/L (98-107); Glucose 183 mg/dL (70-105); Magnesium 2.5 mg/dL (1.6-2.6); Osmolality,Calculated 304 (280-300); Phosphorous 2.7 mg/dL (2.7-4.5); Potassium 3.9 mEq/L (3.5-5.1); Sodium 139 mEq/L (136-145); eGFR For African Americans > 60 (> 60); eGFR For Non-African Americans > 60 (> 60)
[2017-08-30] MEDS ORDERED: Lacri-Lube 3.5 GM TUBE BOTH EYES PRN (07:25)
[2017-08-30] MEDS ORDERED: FentaNYL (PF) 1,000 MCG in 0.9 % Sodium Chloride 80 ML IVC SCH (07:30)
[2017-08-30] MEDS ORDERED: *HR* EPINEPHrine 30 MG/30 ML MDV IM ONE (07:44)
[2017-08-30] MEDS ORDERED: *HR* LORazepam 2 MG/ML VIAL IVP ONE (07:44)
[2017-08-30] MEDS ORDERED: *HR* Amiodarone 150 MG/3 ML VIAL IVPB ONE (07:44)
[2017-08-30] MEDS ORDERED: *HR* Midazolam HCl 2 MG/2 ML VIAL IV ONE (07:44)
[2017-08-30] MEDS ORDERED: *HR* Magnesium Sulfate 2 GM/50 ML PIGGYBACK IVPB ONE (07:44)
--- NOTE | 2017-08-30 07:55 | Procedure Note ---
<Destiney Camacho - Last Filed: 08/30/17 07:58> Date of procedure: 08/30/17 Pre-op diagnosis: acute respiratory failure secondary to pneumonia and severe sepsis Post-op diagnosis: same Procedure: Endotrachial Intubation Date: 08/30/2017 Time: 7:25 Pad Hand: Destiney Camacho DO Attending: Radha Puri MD Indication: Respiratory failure The patient was placed in supine position. All equipment was checked and operational before beginning the procedure. Sedation was obtained using 2mg versed and 10mg etomidate. Patient was not paralyzed. A D-blade using the C-MAC was inserted into the oropharynx at which time a grade 1 view of the vocal cords was visualized. A 7.5 [place] endotracheal tube was inserted and visualized going through the cords. The stylet was removed. Colorimetric change was visualized on the CO2 meter. Breath sounds were heard in both lung gant. There were no breast breath sounds auscultated over the stomach. The endotracheal tube was placed at 24 cm at the lip line. Attending physician, Dr. Radha Puri, was in attendance throughout the entirety of the procedures. A chest x-ray was ordered afterwards to assess for pneumothorax and placement of the endotracheal tube. The patient tolerated the procedure without desaturation Anesthesia: IV sedation Surgeon: Destiney Camacho Was there an geological survey field assistant present: Yes Utility Bag Assembler: Wojciech Espino Estimated blood loss (cc): 0 Specimen: none Pathology: none sent Condition: critical Disposition: ICU <Radha Puri M - Last Filed: 08/30/17 16:30> Procedure: I examined this patient and my medical decision-making was reviewed with the Resident Physician. I agree with the documented findings, disposition and treatment plan as described except to the extent set forth below. I have personally supervised resident performing procedure for worsening hypoxic respiratory failure and encephalopathy.
[2017-08-30] MEDS ORDERED: Lacri-Lube 3.5 GM TUBE BOTH EYES SCH (08:00)
--- NOTE | 2017-08-30 08:02 | Event Note ---
<Wojciech Espino - Last Filed: 08/30/17 07:57> Date of Encounter: 08/30/17 Time of Encounter: 07:28 Patient was intubated using 10 mg etomidate and 2 mg Versed. The intubation was successfully done by Dr. Camacho under my and Dr. Frederick supervision. This was successfully done and verified. Shortly after intubation patient went into cardiac arrest there is no pulses based on pulse check and CPR was started at that time. Patient was hooked up to the pads and a dose of epinephrine was given. We followed ACLS protocol by given epinephrine every 3 minutes. As well as doing pulse checks. There were 5 total rounds of epinephrine given. We also gave 1 amp of bicarbonate as well as 300 mg bolus of amiodarone and magnesium drip was started. Patient also had one rhythm where she was in ventricular fibrillation and we did one shock at 200 J. Patient was never in another shockable rhythm. Unfortunately after 18 minutes of ACLS we are unable to get pulses patient's pupils were fixed and dilated the patient had agonal breaths and on the rhythm strip showed asystole with no electrical conduction.. At that time we checked all H is not T's and check all staff in the room and there are no other thoughts at that time. So time of was called at 0745. <Radha Puri - Last Filed: 08/30/17 16:28> Date of Encounter: 08/30/17 I examined this patient and my medical decision-making was reviewed with the Resident Physician. I agree with the documented findings, disposition and treatment plan as described except to the extent set forth below. I was present during CODE BLUE as well as procedure. Patient with poor prognosis and hypoxia which was worsening as indicated above condition deteriorated and unfortunately patient . Family is aware. Critical care performed: Time is exclusive of separately billable procedures. Time includes: direct patient care, patient reassessment, coordination of patient care, interpretation of data (laboratory data, radiology data, and respiratory data), review of patient's medical records, medical consultation and documentation of patient care. Procedures excluded from critical care time: 45 minutes
--- NOTE | 2017-08-30 08:10 | Death Note ---
<Destiney Camacho N - Last Filed: 08/30/17 08:08> Discharge Sum: Summary - Date and Time Date of admission: 08/28/17 00:06 Date of : 08/30/17 Time of : 07:45 - Summary Details: Patient was admitted to the hospital for a 1 week history of generalized weakness, shortness of breath, cough, and fever. Chest x-ray in the emergency department revealed bilateral pneumonia worse in the right lower lobe. She was diagnosed with acute respiratory failure and sepsis secondary to pneumonia and required BiPAP to maintain oxygen saturation. Patient was admitted to the ICU and treated with antibiotics, steroids, nebulizer treatments and remained on BiPAP. Her serology was positive for methicillin sensitive staph aureus, and her cultures grew gram-positive cocci. She was treated with the appropriate antibiotics and was saturating in the 90s while on BiPAP. Overnight she experienced a change in mental status and her pupils were found to be asymmetric. A CT of the head was obtained and revealed moderate small vessel chronic ischemic changes without acute hemorrhage or definitive evidence for acute ischemia. When the patient returned from CT this morning she remained altered and only responded to pain. Decision was made to intubate, and patient was intubated successfully. Shortly after intubation the patient went into cardiac arrest and immediate CPR was initiated as per ACLS protocol. After a few minutes of ACLS the patient remained in asystole, there were no heart or lung sounds, and her pupils were fixed and dilated. Time of was called at 0745. - Additional Data Confirmation of as documented by pronouncing clinician: no pulse, no respirations, no heart sounds, pupils fixed and dilated Family: contacted Attending/PCP notified?: No Attending physician: Radha Puri MD Was code activated?: Yes Autopsy requested?: No range examiner notified?: No Organ bank notified?: No Advance directives: No Hospice patient?: No Discharge Sum: Diag - PCOD Probable Cause of : Cardiac arrest (Patient was admitted in respiratory failure, she was intubated today and shortly after experienced Cardec arrest. See event note) - Contributing Factors (1) Sepsis Pneumonia (4) Pneumonia Serology positive for staph, cultures grew gram-positive cocci (5) COPD exacerbation Smoking history (7) CAD (coronary artery disease) History of [place] stenting 2 (8) Acute respiratory failure with hypoxemia Pneumonia, sepsis, history of COPD Discharge Sum: Prov - Provider Primary care physician: Idania Sun DO Admitting clinician: Levi May Attending physician on admission: Radha Puri Consults: 08/28/17 01:41 Consult to Critical Care [CONS] Routine Consulting Provider: Pulm Crit Care & Sleep Do Reason for Consult: Severe sepsis, PNA, possible ARDS Call Completed: Yes 08/29/17 10:36 Consult to Invasive Line Access Team [CONS] Routine Reason for Consult: limited acess Line Type: EPIV Pronouncing clinician: Wojciech Espino <Radha Puri - Last Filed: 08/30/17 16:34> Discharge Sum: Summary - Date and Time Date of admission: 08/28/17 00:06 - Additional Data Attending physician: Levi May MD Discharge Sum: Prov - Provider Primary care physician: Idania Sun DO Consults: 08/28/17 01:41 Consult to Critical Care [CONS] Routine Consulting Provider: Pulm Crit Care & Sleep Do Reason for Consult: Severe sepsis, PNA, possible ARDS Call Completed: Yes 08/29/17 10:36 Consult to Invasive Line Access Team [CONS] Routine Reason for Consult: limited acess Line Type: EPIV - Attending Attestation I examined this patient and my medical decision-making was reviewed with the Resident Physician. I agree with the documented findings, disposition and treatment plan as described except to the extent set forth below. Patient seen and examined. Labs, radiology, chart personally reviewed. Agree with resident's documentation: This patient's condition was deteriorating and I have discussed with the son previously that she will need invasive mechanical ventilation and that is by itself has multiple risks and even risk of or prolonged mechanical ventilation and patient as well as son understand that. She was getting more hypoxic with mental status change and with that deterioration and hypertension with the cardiac unstable at the decision was made to intubate patient since noninvasive ventilation was getting more risky with mental status change and procedure was done without any immediate events, unfortunately subsequently patient had cardiac arrest and ACLS was performed without success and patient and family was aware of that.
[2017-08-30] MEDS ORDERED: Chlorhexidine Rinse 15 ML MOUTHWASH MM SCH (09:00)
[2017-08-30] MEDS ORDERED: Pantoprazole 40 MG VIAL IVP SCH (09:00)
--- NOTE | 2017-08-31 08:17 | Electrocardiograph Report ---
[address] [place] [address] Test Date: 2017-08-28 Pat Name: Kristie Cat Department: 109 Room: [facility] Gender: F Support Services Manager: : 1945 Requested By: Destiney Camacho Order Number: [id number] Reading MD: Wilber Bee Measurements Intervals Howard Rate: 133 P: 40 IA: 164 QRS: 21 QRSD: 96 T: 47 QT: 370 QTc: 448 Interpretive Statements SINUS TACHYCARDIA LOW QRS VOLTAGE IN EXTREMITY LEADS INCOMPLETE RIGHT BUNDLE BRANCH BLOCK BASELINE ARTIFACT Electronically Signed On 08-31-2017 8:15:53 EDT by Wilber Bee
== END 2017-08-30 07:45 | disposition expired | DRG 871 ==
LOC: EMEROO 21:20 → ICNU 08-28 00:06
PROVIDERS: ADMIT Internal Medicine; ATTEND Internal Medicine